=== PATIENT | male | born 1980 | race Caucasian/White ===

== ENCOUNTER 2017-12-20 13:46 | Emergency (ER) | payer BC, SELFPAY ==
--- NOTE | 2017-12-20 15:13 | RAD REPORT ---
EXAM DESCRIPTION: RAD - Elbow Right 3 View - 12/20/2017 2:58 pm CLINICAL HISTORY: Right elbow pain FINDINGS: No fracture or dislocation is seen. Diffuse edema is present within the posterior soft ti ssues.
--- NOTE | 2017-12-20 15:19 | EDPHYS ---
Physician Documentation [facility] Name: Shreyas Quezada Age: 37 yrs Sex: Male : 1980 Arrival Date: 12/20/2017 Time: 13:52 Bed 19 Private MD: None, None ED Physician Juan Braun HPI: 12/20 14:20 The patient or guardian complains of injury, pain. The complaints affect the right gs elbow. Context: resulted from hit elbow on hard surface at work. Onset: The symptoms/episode began/occurred 1 month(s) ago, and became persistent. Treatment prior to arrival includes: went to [facility], no xray done per pt, only iv at er there and oral abx finished 2 weeks ago. Modifying factors: The symptoms are alleviated by nothing. the symptoms are aggravated by nothing. Associated signs and symptoms: Pertinent positives: pain, swelling, Pertinent negatives: fever, numbness. Severity of symptoms: At their worst the symptoms were moderate, in the emergency department the symptoms are unchanged. Historical: - Allergies: 14:04 No Known Allergies; hj - Home Meds: 14:04 None [Active]; hj - PMHx: 14:04 None; hj - PSHx: 14:04 None; hj - Immunization history:: Adult Immunizations up to date. - Social history:: Smoking status: Patient uses tobacco products, smokes one-half pack cigarettes per day, Patient uses alcohol, occasionally. - Ebola Screening: : Patient negative for fever greater than or equal to 101.5 degrees Fahrenheit, and additional compatible Ebola Virus Disease symptoms Patient denies exposure to infectious person Patient denies travel to an Ebola-affected area in the 21 days before illness onset. ROS: 14:20 All other systems are negative. gs Exam: 15:14 Head/Face: Normocephalic, atraumatic. Eyes: Pupils equal round and reactive to light, gs extra-ocular motions intact. Lids and lashes normal. Conjunctiva and sclera are non-icteric and not injected. Cornea within normal limits. Periorbital areas with no swelling, redness, or edema. Cardiovascular: Regular rate and rhythm with a normal S1 and S2. No gallops, murmurs, or rubs. Normal PMI, no JVD. No pulse deficits. Respiratory: Lungs have equal breath sounds bilaterally, clear to auscultation and percussion. No rales, rhonchi or wheezes noted. No increased work of breathing, no retractions or nasal flaring. Abdomen/GI: Soft, non-tender, with normal bowel sounds. No distension or tympany. No guarding or rebound. No evidence of tenderness throughout. Back: No spinal tenderness. No costovertebral tenderness. Full range of motion. Skin: Warm, dry with normal turgor. Normal color with no rashes, no lesions, and no evidence of cellulitis. Neuro: Awake and alert, GCS 15, oriented to person, place, time, and situation. Cranial nerves II-XII grossly intact. Motor strength 5/5 in all extremities. Sensory grossly intact. Cerebellar exam normal. Normal gait. 15:14 Constitutional: The patient appears alert, awake. 15:14 Musculoskeletal/extremity: ROM: full active range of motion, Pulses: are normal with no appreciated deficits, Joints: the right elbow displays effusion, swelling, tenderness. Vital Signs: 14:05 BP 142 / 87; Pulse 98; Resp 18; Temp 98.5(O); Pulse Ox 99% on R/A; Weight 81.65 kg; Height 6 ft. 1 in. (185.42 cm); Pain 6/10; 16:07 BP 130 / 84; Pulse 95; Resp 16; Pulse Ox 99% ; jl7 14:05 Body Mass Index 23.75 (81.65 kg, 185.42 cm) Procedures: 15:55 Joint Treatment: Aspiration of right elbow using 18 gauge needle, Removed unable to gs aspirate fluid, went laterally radial head and olecranon. MDM: 14:16 Patient medically screened. gs 15:14 Differential diagnosis: closed fracture, contusion, tendonitis, bursitis. Data gs reviewed: vital signs, nurses notes. 15:19 ED course: pt states been going on a month, been on abx still having swelling, no gs fevers no cellulitis, do not feel warrants emergent arthrocentesis as not acute, appear pt with chronic bursitis will refer to ortho.. 12/20 14:16 Order name: Elbow Right 3 View XRAY; Complete Time: 15:21 gs Administered Medications: 15:45 Drug: Lidocaine-Epinephrine -1%: (1:100,000) 20 ml {Note: Administered by Dr. Braun to jl7 right elbow.} Volume: 20 ml; Route: Infiltration; 15:52 Drug: [place] 10 mg-325 mg 1 tabs Route: PO; [facility] 16:08 Follow up: Response: Medication administered at discharge. [facility] Disposition: 12/20/17 15:48 Discharged to Home. Impression: Other bursitis of elbow. - Condition is Stable. - Discharge Instructions: Olecranon Bursitis. - Prescriptions for Ceftin 500 mg Oral Tablet - take 1 tablet by ORAL route every 12 hours for 7 days; 14 tablet. Tylenol- Codeine #4 300-60 mg Oral Tablet - take 1 tablet by ORAL route every 6 hours As needed; 12 tablet. - Medication Reconciliation Form, Thank You Letter, Antibiotic Education, Prescription Opioid Use form. - Follow up: Jesse Ho MD; When: 2 - 3 days; Reason: Re-evaluation by your physician. Signatures: Dispatcher [employer] EDMS Wilberto Quintana RN RN Kristina Velásquez RN RN jl7 Juan Braun MD MD Corrections: (The following items were deleted from the chart) 15:29 15:18 12/20/2017 15:18 Discharged to Home. Impression: Other bursitis of elbow, right gs elbow. Condition is Stable. Forms are Work release form, Medication Reconciliation Form, Thank You Letter, Antibiotic Education, Prescription Opioid Use. Follow up: Nathaniel Galaviz; When: 2 - 3 days; Reason: Re-evaluation by your physician. 16:03 15:33 FLUID CELL COUNT,BODY+H.LAB.BRZ ordered. EDMT EDMS 16:05 15:33 FLUID CRYSTALS+U.LAB.BRZ ordered. EDMS EDMS 16:05 15:33 Body Fluid Culture+BA.LAB.BRZ ordered. EDMT EDMS 16:08 15:48 12/20/2017 15:48 Discharged to Home. Impression: Other bursitis of elbow. 7 Condition is Stable. Prescriptions for Naprosyn 500 mg Oral Tablet - take 1 tablet by ORAL route 2 times per day take with food; 20 tablet. and Forms are Medication Reconciliation Form, Thank You Letter, Antibiotic Education, Prescription Opioid Use. Follow up: Jesse Ho; When: 2 - 3 days; Reason: Re-evaluation by your physician.
--- NOTE | 2017-12-20 15:19 | ER ---
Nurse's Notes [facility] Name: Shreyas Quezada Age: 37 yrs Sex: Male : 1980 Arrival Date: 12/20/2017 Time: 13:52 Bed 19 Private MD: None, None Diagnosis: Other bursitis of elbow Presentation: 12/20 14:02 Presenting complaint: Patient states: 4 weeks ago, i was underneath the bumper on my hj truck, i hit it; my R elbow; went to [facility] was dx with bursitis, no xray done; reports swelling; reports numbness and tingling;. Transition of care: patient was not received from another setting of care. Onset of symptoms was December 20, 2017. Risk Assessment: Do you want to hurt yourself or someone else? Patient reports no desire to harm self or others. Initial Sepsis Screen: Does the patient meet any 2 criteria? No. Patient's initial sepsis screen is negative. Does the patient have a suspected source of infection? No. Patient's initial sepsis screen is negative. Care prior to arrival: None. 14:02 Method Of Arrival: Ambulatory 14:02 Acuity: FADUMO 4 hj Triage Assessment: 14:04 General: Appears in no apparent distress. uncomfortable, Behavior is calm, cooperative, hj appropriate for age. Pain: Complains of pain in right elbow Pain currently is 6 out of 10 on a pain scale. Musculoskeletal: Reports pain in right elbow. 14:06 Injury Description: Avulsion bump. hj Historical: - Allergies: 14:04 No Known Allergies; hj - Home Meds: 14:04 None [Active]; hj - PMHx: 14:04 None; hj - PSHx: 14:04 None; hj - Immunization history:: Adult Immunizations up to date. - Social history:: Smoking status: Patient uses tobacco products, smokes one-half pack cigarettes per day, Patient uses alcohol, occasionally. - Ebola Screening: : Patient negative for fever greater than or equal to 101.5 degrees Fahrenheit, and additional compatible Ebola Virus Disease symptoms Patient denies exposure to infectious person Patient denies travel to an Ebola-affected area in the 21 days before illness onset. Screenin:05 Abuse screen: Denies threats or abuse. Denies injuries from another. Nutritional hj screening: No deficits noted. Tuberculosis screening: No symptoms or risk factors identified. Fall Risk None identified. Assessment: 14:08 General: Appears in no apparent distress. well groomed, Behavior is calm, cooperative, tw2 appropriate for age. Pain: Complains of pain in right elbow. Neuro: Level of Consciousness is awake, alert, obeys commands, Oriented to person, place, time, situation. Cardiovascular: Denies chest pain, shortness of breath, Capillary refill < 3 seconds Patient's skin is warm and dry. Respiratory: Airway is patent Respiratory effort is even, unlabored, Respiratory pattern is regular, symmetrical. GI: No signs and/or symptoms were reported involving the gastrointestinal system. : No signs and/or symptoms were reported regarding the genitourinary system. EENT: No signs and/or symptoms were reported regarding the EENT system. Derm: No signs and/or symptoms reported regarding the dermatologic system. Musculoskeletal: Reports numbness in right arm pain in right elbow. 15:00 Reassessment: No changes from previously documented assessment. Patient and/or family jl7 updated on plan of care and expected duration. Pain level reassessed. Patient is alert, oriented x 3, equal unlabored respirations, skin warm/dry/pink. 15:45 Reassessment: Dr. Braun at bedside to drain fluid from right elbow. jl7 Vital Signs: 14:05 BP 142 / 87; Pulse 98; Resp 18; Temp 98.5(O); Pulse Ox 99% on R/A; Weight 81.65 kg; hj Height 6 ft. 1 in. (185.42 cm); Pain 6/10; 16:07 BP 130 / 84; Pulse 95; Resp 16; Pulse Ox 99% ; jl7 14:05 Body Mass Index 23.75 (81.65 kg, 185.42 cm) ED Course: 13:52 Patient arrived in ED. mr 13:52 None, None is Private Physician. mr 14:04 Triage completed. 14:05 Arm band placed on left wrist. 14:05 Patient has correct armband on for positive identification. Bed in low position. Call light in reach. Side rails up X 1. 14:08 Angelica David RN is Primary Nurse. tw2 14:09 Juan Braun MD is Attending Physician. gs 14:56 X-ray completed. Portable x-ray completed in exam room. Patient tolerated procedure ml well. 14:58 Elbow Right 3 View XRAY In Process Unspecified. EDMS 15:07 Primary Nurse role handed off by Angelica David RN tw2 15:15 Kristina Velásquez, ESPERANZA is Primary Nurse. jl 15:16 Nathaniel Galaviz MD is Referral Physician. 15:48 Jesse Ho MD is Referral Physician. 16:07 No provider procedures requiring assistance completed. Patient did not have IV access jl7 during this emergency room visit. Administered Medications: 15:45 Drug: Lidocaine-Epinephrine -1%: (1:100,000) 20 ml {Note: Administered by Dr. Braun to jl7 right elbow.} Volume: 20 ml; Route: Infiltration; 15:52 Drug: [place] 10 mg-325 mg 1 tabs Route: PO; jl7 16:08 Follow up: Response: Medication administered at discharge. jl Outcome: 15:18 Discharge ordered by . gs 15:48 Discharge ordered by . 16:07 Discharged to home ambulatory. jl7 16:07 Condition: stable 16:07 Discharge instructions given to patient, family, Instructed on discharge instructions, follow up and referral plans. medication usage, Demonstrated understanding of instructions, follow-up care, medications, Prescriptions given X 2. 16:08 Patient left the ED. jl7 Signatures: Dispatcher [employer] EDHI Nayla Hutson mr TinsleySabiha Henry, RN RN hj Angelica David RN RN tw2 Kristina Velásquez RN RN jl7 Juan Braun MD MD Corrections: (The following items were deleted from the chart) 14:07 14:05 Pulse 98bpm; Resp 18bpm; Pulse Ox 99% RA; Temp 98.5F Oral; 81.65 kg; Height 6 ft. hj 1 in.; BMI: 23.7; Pain 6/10; hj
[2017-12-20] MEDS ORDERED: LIDOCAINE 1% W/EPI 1:100,000 MDV 50 ML VIAL ONE (15:32)
[2017-12-20] MEDS ORDERED: HYDROCODONE/APAP 10/325 TAB ONE (15:52)
== END 2017-12-20 16:08 | disposition home or self-care (01) ==
LOC: ER 13:46
PROC: 0RJL3ZZ Inspection of Right Elbow Joint, Percutaneous Approach (ICD-10-PCS; principal; 2017-12-20)
DX: M71.521 Other bursitis, not elsewhere classified, right elbow (principal); F17.210 Nicotine dependence, cigarettes, uncomplicated; W22.09XA Striking against other stationary object, initial encounter; Y93.89 Activity, other specified; Y92.89 Other specified places as the place of occurrence of the external cause
CPT/HCPCS: 99283

== ENCOUNTER 2021-12-17 17:31 | Emergency (ER) | payer SELFPAY ==
[2021-12-17 18:34] LABS: Absolute Lymphocytes (CBC) 1.7 K/uL (0.7-4.9); Lymphocytes % 10.4 % (15.3-44.8); MCV 82.2 fL (80-100); MPV 7.7 fL (7.6-11.3)
[2021-12-17] MEDS ORDERED: ONDANSETRON 4 MG/2 ML VIAL ONE ×2 (18:37→19:27)
[2021-12-17] MEDS ORDERED: MORPHINE 4 MG/ML SYR ONE ×2 (18:37→19:27)
[2021-12-17 18:44] LABS: Albumin 3.8 g/dL (3.4-5.0); Bilirubin Total 0.5 mg/dL (0.2-1.0); Potassium 3.8 mmol/L (3.5-5.1); Protein, Total 7.8 g/dL (6.4-8.2)
[2021-12-17] MEDS ORDERED: NA CHLORIDE 0.9% 1,000 ML ONE (19:27)
--- NOTE | 2021-12-17 19:59 | RAD REPORT ---
EXAM DESCRIPTION: CT - Abdomen Pelvis W Contrast - 12/17/2021 7:34 pm CLINICAL HISTORY: Abdominal pain/right rib pain COMPARISON: none. TECHNIQUE: Computed axial tomography of the abdomen pelvis was obtained. 100 cc Isovue-300 was admin istered intravenously. Oral contrast was not requested which limits evaluation of bowel and appendix All CT scans are performed using dose optimization technique as appropriate and may include automated exposure control or mA/KV adjustment according to patient size. FINDINGS: Tiny bilateral renal calculi. Mild left hydronephrosis. Left ureter is dilated. A 2 millim eter calculus left distal ureter. The liver, spleen, pancreas, and adrenals appear unremarkable. There is no evidence of diverticulitis. Small to moderate right inguinal hernia containing fat IMPRESSION: 2 millimeter calculus distal left ureter resulting in mild left hydronephrosis Tiny bilateral renal calculi Small to moderate right inguinal hernia containing fat.
[2021-12-17] MEDS ORDERED: MAGNESIUM SULFATE 1 gm IVPB 1 GM/100 ML BAG IV ONE (20:18)
[2021-12-17] MEDS ORDERED: KETOROLAC 30 MG/ML INJ ONE (20:18)
[2021-12-17] MEDS ORDERED: TAMSULOSIN 0.4 MG SR CAP ONE (20:18)
[2021-12-17 22:45] LABS: Urine Blood 3+ (Negative); Urine Glucose Negative (Negative); Urine Protein 1+ (Negative)
--- NOTE | 2021-12-17 23:28 | EDPHYS ---
Physician Documentation [facility] Name: Shreyas Quezada Age: 41 yrs Sex: Male : 1980 Arrival Date: 12/17/2021 Time: 17:33 Bed 5 Private MD: ED Physician Kirby Gonzalez HPI: 12/18 00:00 This 41 yrs old Male presents to ER via Ambulatory with complaints of abdominal pain. kb 00:00 The patient presents with abdominal pain in the lower abdomen. Onset: The kb symptoms/episode began/occurred last night. The symptoms radiate to. Associated signs and symptoms: Pertinent positives: nausea and vomiting, Pertinent negatives: diarrhea, fever. The symptoms are described as constant. Modifying factors: The symptoms are alleviated by nothing, the symptoms are aggravated by nothing. Severity of pain: At its worst the pain was moderate in the emergency department the pain has improved. The patient has not experienced similar symptoms in the past. Pt states he started having abd pain, nausea and vomiting last night. States he has had a hernia for months and thinks that is the problem because he has not been using the strap to keep it in for 2 days. Hernia reduced at time of exam. . Historical: - Allergies: 12/17 17:46 No Known Allergies; ld1 - Home Meds: 17:46 None [Active]; ld1 - PMHx: 17:46 None; ld1 - PSHx: 17:46 None; ld1 - Immunization history:: Adult Immunizations up to date, Client reports having NOT received the Covid vaccine. - Social history:: Smoking status: Patient reports the use of cigarette tobacco products, smokes one-half pack cigarettes per day, Patient/guardian denies using alcohol. ROS: 12/18 00:00 Constitutional: Negative for fever, chills, and weight loss. kb Abdomen/GI: Positive for abdominal pain, nausea and vomiting, Negative for diarrhea, constipation. All other systems are negative. Exam: 12/17 23:59 Constitutional: This is a well developed, well nourished patient who is awake, alert, kb and in no acute distress. Head/Face: Normocephalic, atraumatic. ENT: Moist Mucous membranes Cardiovascular: Regular rate and rhythm with a normal S1 and S2. No gallops, murmurs, or rubs. No pulse deficits. Respiratory: Respirations even and unlabored. No increased work of breathing. Talking in full sentences Skin: Warm, dry with normal turgor. Normal color. MS/ Extremity: Pulses equal, no cyanosis. Neurovascular intact. Full, normal range of motion. Neuro: Awake and alert, GCS 15, oriented to person, place, time, and situation. Moves all extremities. Normal gait. Psych: Awake, alert, with orientation to person, place and time. Behavior, mood, and affect are within normal limits. Abdomen/GI: Inspection: abdomen appears normal, Bowel sounds: normal, in all quadrants, Palpation: soft, in all quadrants, mild abdominal tenderness, in all quadrants. Vital Signs: 17:43 BP 126 / 92; Pulse 56; Resp 18; Temp 97.8(TE); Pulse Ox 100% on R/A; Weight 81.65 kg; ld1 Height 6 ft. 1 in. (185.42 cm); Pain 8/10; 18:51 BP 131 / 89; Pulse 88; Resp 18; Pulse Ox 100% on R/A; ld1 21:09 BP 131 / 92; Pulse 78; Resp 19 S; Pulse Ox 100% on R/A; as6 12/18 00:08 BP 128 / 72; Pulse 81; Resp 18; Pulse Ox 100% on R/A; kd3 12/17 17:43 Body Mass Index 23.75 (81.65 kg, 185.42 cm) ld1 MDM: 12/17 17:35 Patient medically screened. damaso 23:59 Data reviewed: vital signs, nurses notes. Data interpreted: Pulse oximetry: on room air kb is 100 %. Interpretation: normal. Counseling: I had a detailed discussion with the patient and/or guardian regarding: the historical points, exam findings, and any diagnostic results supporting the discharge/admit diagnosis, lab results, radiology results, the need for outpatient follow up, a urologist, to return to the emergency department if symptoms worsen or persist or if there are any questions or concerns that arise at home. 12/17 17:36 Order name: CBC with Diff; Complete Time: 18:38 kb 12/17 17:36 Order name: CMP; Complete Time: 18:59 kb 12/17 17:36 Order name: Lipase; Complete Time: 18:59 kb 12/17 17:36 Order name: CT Abd/Pelvis - IV Contrast Only; Complete Time: 20:01 kb 12/17 20:02 Order name: Urine Microscopic Only kb 12/17 22:45 Order name: Urine Dipstick-Ancillary; Complete Time: 23:03 EDMS 12/17 17:36 Order name: IV Saline Lock; Complete Time: 17:49 kb 12/17 17:36 Order name: Labs collected and sent; Complete Time: 18:22 kb 12/17 20:02 Order name: Urine Dipstick-Ancillary (obtain specimen); Complete Time: 22:39 kb Administered Medications: 19:26 Drug: morphine 4 mg Route: IVP; Infused Over: 4 mins; Site: left hand; kd3 23:54 Follow up: Response: No adverse reaction 12/18 00:08 Follow up: Response: No adverse reaction 12/17 19:26 Drug: Zofran (Ondansetron) 4 mg Route: IVP; Site: left hand; kd3 23:54 Follow up: Response: No adverse reaction 12/18 00:09 Follow up: Response: No adverse reaction 12/17 19:26 Drug: NS 0.9% 1000 ml Route: IV; Rate: 1000 ml; Site: left hand; kd3 23:54 Follow up: Response: No adverse reaction; IV Status: Completed infusion 12/18 00:09 Follow up: Response: No adverse reaction; IV Status: Completed infusion 12/17 20:18 Drug: Magnesium Sulfate 1 grams Route: IVPB; Infused Over: 1 hrs; Site: left hand; kd3 23:54 Follow up: Response: No adverse reaction; IV Status: Completed infusion 12/18 00:09 Follow up: Response: No adverse reaction 12/17 20:18 Drug: Flomax (tamsulosin) 0.4 mg Route: PO; 12/18 00:09 Follow up: Response: No adverse reaction 12/17 20:18 Drug: Ketorolac 15 mg Route: IVP; Site: left hand; kd3 23:53 Follow up: Response: No adverse reaction 12/18 00:09 Follow up: Response: No adverse reaction 12/17 23:53 Drug: [place] (HYDROcodone-acetaminophen) (7.5 mg-325 mg) 1 tabs Route: PO; kd3 23:53 Follow up: Response: No adverse reaction kd3 23:53 Drug: Rocephin (cefTRIAXone) 1 grams Route: IV; Rate: calculated rate; Site: left hand; kd3 23:53 Follow up: Response: No adverse reaction; IV Status: Completed infusion kd3 Disposition Summary: 12/17/21 23:28 Discharge Ordered Location: Home kb Condition: Stable kb Diagnosis - Calculus of kidney with calculus of ureter kb Followup: kb - With: Emergency Department - When: As needed - Reason: Worsening of condition Followup: kb - With: Private Physician - When: 2 - 3 days - Reason: Recheck today's complaints, Continuance of care, Re-evaluation by your physician Discharge Instructions: - Discharge Summary Sheet kb - Kidney Stones, [id number] kb Forms: - Medication Reconciliation Form kb - Thank You Letter kb - Antibiotic Education kb - Prescription Opioid Use kb Prescriptions: - Flomax 0.4 mg Oral capsule - take 1 capsule by ORAL route once daily 1/2 hour following the same meal each kb day; 10 capsule; Refills: 0, Product Selection Permitted - Zofran 4 mg Oral Tablet - take 1 tablet by ORAL route every 6 hours As needed; 20 tablet; Refills: 0, Product Selection Permitted - Cipro 500 mg Oral Tablet - take 1 tablet by ORAL route every 12 hours for 7 days; 14 tablet; Refills: 0, Product Selection Permitted - Diclofenac Sodium 75 mg Oral tablet,delayed release (DR/EC) - take 1 tablet by ORAL route 2 times per day As needed; 30 tablet; Refills: 0, kb Product Selection Permitted Signatures: Dispatcher [employer] Sharifa Zheng FNP-C FNP-Kirby Ruiz MD MD cha Dibbern, Lauren RN RN ld1 Ana Arriaga RN RN kd3 Corrections: (The following items were deleted from the chart) 17:46 17:46 PMHx: Unable to Obtain; ld1 ld1
--- NOTE | 2021-12-17 23:28 | ER ---
Nurse's Notes [facility] Name: Shreyas Quezada Age: 41 yrs Sex: Male : 1980 Arrival Date: 12/17/2021 Time: 17:33 Bed 5 Private MD: Diagnosis: Calculus of kidney with calculus of ureter Presentation: 12/17 17:43 Chief complaint: Patient states: Right groin pain since last night- radiates to ld1 testicles and abdomen. C/O n/v. Coronavirus screen: At this time, the client does not indicate any symptoms associated with coronavirus-19. Ebola Screen: No symptoms or risks identified at this time. Initial Sepsis Screen: Does the patient meet any 2 criteria? No. Patient's initial sepsis screen is negative. Does the patient have a suspected source of infection? No. Patient's initial sepsis screen is negative. Risk Assessment: Do you want to hurt yourself or someone else? Patient reports no desire to harm self or others. Onset of symptoms was December 17, 2021. 17:43 Method Of Arrival: Ambulatory ld1 17:43 Acuity: FADUMO 3 ld1 17:46 Care prior to arrival: Medication(s) given: zofran 4 mg. ld1 Triage Assessment: 17:46 General: Appears in no apparent distress. comfortable, Behavior is calm, cooperative, ld1 appropriate for age. Pain: Complains of pain in right femoral area and right inguinal area Pain radiates to abdomen, left testicle and right testicle Pain currently is 8 out of 10 on a pain scale. Quality of pain is described as throbbing, Pain began suddenly. EENT: No signs and/or symptoms were reported regarding the EENT system. Neuro: Level of Consciousness is awake, alert, obeys commands, Oriented to person, place, time, situation. Cardiovascular: Capillary refill < 3 seconds Patient's skin is warm and dry. Rhythm is sinus rhythm. Respiratory: Airway is patent Respiratory effort is even, unlabored, Respiratory pattern is regular, symmetrical. GI: Abdomen is flat, non-distended. GI: Reports lower abdominal pain, upper abdominal pain, nausea, vomiting. : No signs and/or symptoms were reported regarding the genitourinary system. Derm: No signs and/or symptoms reported regarding the dermatologic system. Musculoskeletal: No signs and/or symptoms reported regarding the musculoskeletal system. Historical: - Allergies: 17:46 No Known Allergies; ld1 - Home Meds: 17:46 None [Active]; ld1 - PMHx: 17:46 None; ld1 - PSHx: 17:46 None; ld1 - Immunization history:: Adult Immunizations up to date, Client reports having NOT received the Covid vaccine. - Social history:: Smoking status: Patient reports the use of cigarette tobacco products, smokes one-half pack cigarettes per day, Patient/guardian denies using alcohol. Screenin:48 Abuse screen: Denies threats or abuse. Denies injuries from another. Nutritional ld1 screening: No deficits noted. Tuberculosis screening: No symptoms or risk factors identified. Fall Risk None identified. Assessment: 17:48 Reassessment: See triage assessment. ld1 19:27 General: Appears uncomfortable, Behavior is calm, cooperative. Neuro: Level of kd3 Consciousness is awake, alert, obeys commands, Oriented to person, place, time, situation. Respiratory: Airway is patent Trachea midline Respiratory effort is even, unlabored, Respiratory pattern is regular, symmetrical. Vital Signs: 17:43 BP 126 / 92; Pulse 56; Resp 18; Temp 97.8(TE); Pulse Ox 100% on R/A; Weight 81.65 kg; ld1 Height 6 ft. 1 in. (185.42 cm); Pain 8/10; 18:51 BP 131 / 89; Pulse 88; Resp 18; Pulse Ox 100% on R/A; ld1 21:09 BP 131 / 92; Pulse 78; Resp 19 S; Pulse Ox 100% on R/A; as6 12/18 00:08 BP 128 / 72; Pulse 81; Resp 18; Pulse Ox 100% on R/A; kd3 12/17 17:43 Body Mass Index 23.75 (81.65 kg, 185.42 cm) ld1 ED Course: 12/17 17:33 Patient arrived in ED. iw 17:35 Sharifa Tirado FNP-C [facility] kb 17:35 Kirby Gonzalez MD is Attending Physician. kb 17:43 Mary Rivera, ESPERANZA is Primary Nurse. ld1 17:46 Triage completed. ld1 17:46 Arm band placed on. ld1 17:48 Patient has correct armband on for positive identification. Placed in gown. Bed in low ld1 position. Call light in reach. Side rails up X2. international relations teacher on. Pulse ox on. NIBP on. Door closed. Noise minimized. Warm blanket given. 17:48 No provider procedures requiring assistance completed. Maintain EMS IV. Dressing ld1 intact. Good blood return noted. Site clean \T\ dry. Gauge \T\ site: 20G LH. 19:27 Inserted saline lock: 22 gauge in right antecubital area, using aseptic technique. kd3 19:36 CT Abd/Pelvis - IV Contrast Only In Process Unspecified. EDMS 23:54 IV discontinued, intact, bleeding controlled, No redness/swelling at site. Pressure kd3 dressing applied. Administered Medications: 19:26 Drug: morphine 4 mg Route: IVP; Infused Over: 4 mins; Site: left hand; kd3 23:54 Follow up: Response: No adverse reaction kd3 12/18 00:08 Follow up: Response: No adverse reaction kd3 12/17 19:26 Drug: Zofran (Ondansetron) 4 mg Route: IVP; Site: left hand; kd3 23:54 Follow up: Response: No adverse reaction 3 12/18 00:09 Follow up: Response: No adverse reaction 3 12/17 19:26 Drug: NS 0.9% 1000 ml Route: IV; Rate: 1000 ml; Site: left hand; kd3 23:54 Follow up: Response: No adverse reaction; IV Status: Completed infusion 3 12/18 00:09 Follow up: Response: No adverse reaction; IV Status: Completed infusion 3 12/17 20:18 Drug: Magnesium Sulfate 1 grams Route: IVPB; Infused Over: 1 hrs; Site: left hand; kd3 23:54 Follow up: Response: No adverse reaction; IV Status: Completed infusion 3 12/18 00:09 Follow up: Response: No adverse reaction 3 12/17 20:18 Drug: Flomax (tamsulosin) 0.4 mg Route: PO; kd3 12/18 00:09 Follow up: Response: No adverse reaction 3 12/17 20:18 Drug: Ketorolac 15 mg Route: IVP; Site: left hand; kd3 23:53 Follow up: Response: No adverse reaction 3 06/30 00:09 Follow up: Response: No adverse reaction kd3 12/17 23:53 Drug: [place] (HYDROcodone-acetaminophen) (7.5 mg-325 mg) 1 tabs Route: PO; kd3 23:53 Follow up: Response: No adverse reaction kd3 23:53 Drug: Rocephin (cefTRIAXone) 1 grams Route: IV; Rate: calculated rate; Site: left hand; kd3 23:53 Follow up: Response: No adverse reaction; IV Status: Completed infusion kd3 Medication: 17:48 VIS not applicable for this client. ld1 Outcome: 23:28 Discharge ordered by . kb 23:41 Condition: stable kd3 23:42 Discharged to home ambulatory. kd3 23:42 Discharge instructions given to patient. 12/18 00:09 Patient left the ED. kd3 Signatures: Dispatcher [employer] EDMS Sharifa Tirado, PERFORMANCE TEST ARCHITECT-C PERFORMANCE TEST ARCHITECT-CkMonica Jay RN RN iw Mary Rivera RN RN ld1 Juanjo Schultz RN RN as6 Ana Arriaga RN RN kd3 Corrections: (The following items were deleted from the chart) 12/17 17:46 17:46 PMHx: Unable to Obtain; ld1 ld1 21:09 21:07 BP 131 / 92; Pulse 94bpm; Resp 19bpm; Spontaneous; Pulse Ox 100% RA; as6 as6
[2021-12-17] MEDS ORDERED: HYDROCODONE/APAP 7.5/325 MG TAB ONE (23:53)
[2021-12-17] MEDS ORDERED: CEFTRIAXONE 1000 MG/VIAL ONE (23:53)
[2021-12-18 00:14] LABS: Urine Bacteria <20 /HPF (NONE SEEN); Urine RBC 20-50 /HPF (NONE SEEN)
[2021-12-18 01:59] VITALS: TEMP 97.8; O2SAT 100
[2021-12-18 02:03] VITALS: BP 128/72
== END 2021-12-18 00:09 | disposition home or self-care (01) ==
LOC: ER 17:31
DX: N20.2 Calculus of kidney with calculus of ureter (principal); R11.2 Nausea with vomiting, unspecified; F17.210 Nicotine dependence, cigarettes, uncomplicated
CPT/HCPCS: 36415; 74177; 80053; 81003; 81015; 83690; 85025; 96361; 96365; 96366; 96375; 99284; J2405; J3475; J7030; Q9967

== ENCOUNTER 2023-11-17 10:12 | Emergency (ER) | payer OTHER, SELFPAY ==
--- OUTSIDE RECORDS SUMMARY | 2023-11-17 10:15 | XMS REPORT | Continuity of Care Document ---
Author Name Unknown Address [address] [place] [address] [address] [employer] Address [address] [place] [address] [address] [place] [address] Care Team Providers Care Stable Hand Name Role Phone Unavailable Unavailable Unavailable Encounters Start Date/Time End Date/Time Encounter Type Admission Type Attending Clinicians Care Facility Care Department Encounter ID Source 2022-03-24 11:16:48 2022-03-24 11:16:48 Outpatient [facility] [id number] Drake Mcknight
[2023-11-17] MEDS ORDERED: KETOROLAC 30 MG/ML INJ ONE (10:58)
[2023-11-17] MEDS ORDERED: NA CHLORIDE 0.9% 1,000 ML ONE (10:58)
--- NOTE | 2023-11-17 11:00 | RAD REPORT ---
EXAM DESCRIPTION: CT - Abdomen Pelvis Wo Contrast - 11/17/2023 10:47 am CLINICAL HISTORY: Abdominal pain. FLANK PAIN COMPARISON: Abdomen Pelvis W Contrast dated 12/17/2021 TECHNIQUE: CT imaging of the abdomen and pelvis was performed without contrast. Solid organ, bowel a nd vascular assessment is limited due to lack of IV and oral contrast. All CT scans are performed using dose optimization technique as appropriate and may include automated exposure control or mA/KV adjustment according to patient size. FINDINGS: The lower lung obrien are clear. The liver, spleen, pancreas, adrenal glands are within normal limits for a limited non-contrast exami nation.Punctate caliceal stones are present bilaterally. No hydronephrosis. No bowel obstruction, free air, free fluid or abscess. Prominent wall thickening is seen with surroun ding trace fluid and inflammation involving the cecum and ascending colon. No pneumatosis coli. Moder ate fecal retention throughout the colon. The appendix is normal. Large fat containing right inguinal hernia containing numerous small bowel loops without obstruction or incarceration. Moderate multilevel lumbar degenerative changes. IMPRESSION: Right-sided colitis is suspected with fecal retention. This may be due to infection or i nflammatory bowel disease. Followup colonoscopy may be useful. Punctate bilateral nephrolithiasis without hydronephrosis. Large fat containing right inguinal hernia containing small bowel loops without evidence of incarcera tion or obstruction. A limited non-contrast examination was performed as detailed.
[2023-11-17] MEDS ORDERED: CIPROFLOXACIN 400mg IV 400 MG/200 ML BAG IV ONE (11:36)
[2023-11-17 12:02] LABS: Absolute Basophils 0.1 K/uL (0-0.5); Absolute Eosinophils 0.1 K/uL (0-0.5); Absolute Lymphocytes (CBC) 1.5 K/uL (0.7-4.9); Absolute Monocytes 1.1 K/uL (0.1-1.3); Basophils % 0.5 % (0-1.3); Eosinophils % 0.6 % (0-4.4); Hematocrit 40.8 % (39.6-49.0); Hemoglobin 13.7 g/dL (13.6-17.9); MCH 28.9 pg (27.0-35.0); MCHC 33.6 g/dL (32.0-36.0); MPV 7.3 fL (7.6-11.3); Monocytes % 9.3 % (3.3-12.3); Neutrophils % 76.6 % (41.7-73.7); Nucleated Red Blood Cells % 0.1 % (0-0); Platelets 223 thou/uL (152-406); RBC Red Blood Cell Count 4.75 M/uL (4.33-5.43); Red Cell Distribution Width 13.2 % (12.1-15.2)
[2023-11-17 12:16] LABS: ALT/SGPT 15 U/L (16-61); Albumin 2.9 g/dL (3.4-5.0); Albumin/Globulin Ratio 0.8 (1.1-1.8); Alkaline Phosphatase 88 U/L (45-117); Anion Gap 3.8 mEq/L (5.0-15.0); BUN Blood Urea Nitrogen 9 mg/dL (7-18); Bicarbonate 31 mEq/L (21-32); Bilirubin Total 0.3 mg/dL (0.2-1.0); Globulin 3.6 g/dL (2.3-3.5); Glomerular Filtration Rate 103 ml/min (=/>90); Glucose Level 98 mg/dL (74-106); Lipase 27 U/L (13-75); Potassium 3.8 mEq/L (3.5-5.1); Protein, Total 6.5 g/dL (6.4-8.2); Sodium Level 134 mEq/L (136-145)
[2023-11-17 12:19] LABS: AST/SGOT < 10 U/L (15-37)
[2023-11-17 13:34] LABS: Specific Gravity > 1.030 (1.005-1.030); Sqamous Epithelial <5 /HPF (None Seen); Urine Bacteria None Seen /HPF (<20); Urine Bilirubin NEGATIVE (Negative); Urine Blood Negative (Negative); Urine Clarity Turbid (Clear); Urine Color Yellow (Yellow); Urine Culture Reflex Order NOT NEEDED; Urine Glucose NEGATIVE (Negative); Urine Ketones NEGATIVE (Negative); Urine Microscopic Reflex YN ORDER UMIC; Urine Mucus 3+ /HPF (None Seen); Urine Nitrite NEGATIVE (Negative); Urine Protein 1+ (Negative); Urine Urobilinogen Normal (Normal); Urine WBC <5 /HPF (<5)
--- NOTE | 2023-11-17 13:38 | EDPHYS ---
Physician Documentation [facility] Name: Shreyas Quezada Age: 43 yrs Sex: Male : 1980 Arrival Date: 11/17/2023 Time: 10:12 Bed 13 Private MD: ED Physician Don Ayers HPI: 11/16 11:17 This 43 yrs old Male presents to ER via Ambulatory with complaints of Flank Pain, Pain sp3 With Urination, Abdominal Pain. 11:17 43-year-old male with a history of right-sided inguinal hernia and prior kidney stones sp3 presents with right flank pain and cramping for the last 48 hours. He states that he "might of passed a kidney stone yesterday". He denies any gross visualized hematuria, dysuria, urinary frequency, left-sided abdominal pain, chest pain, shortness of breath, fever, known sick contacts, cough, URI symptoms, or any other signs or symptoms on ROS at this time.. Historical: - Allergies: 10:31 No Known Allergies; iw - PMHx: 10:31 Inguinal hernia; iw - Immunization history:: Adult Immunizations unknown. - Infectious Disease History:: Denies. - Social history:: Smoking status: Patient reports the use of cigarette tobacco products, denies chronic smoking, but will smoke occasionally. ROS: 11:18 Constitutional: Negative for fever, chills, and weight loss, Eyes: Negative for injury, sp3 pain, redness, and discharge, ENT: Negative for injury, pain, and discharge, Neck: Negative for injury, pain, and swelling, Cardiovascular: Negative for chest pain, palpitations, and edema, Respiratory: Negative for shortness of breath, cough, wheezing, and pleuritic chest pain, MS/Extremity: Negative for injury and deformity, Skin: Negative for injury, rash, and discoloration, Neuro: Negative for headache, weakness, numbness, tingling, and seizure, Psych: Negative for depression, anxiety, suicide ideation, homicidal ideation, and hallucinations, Allergy/Immunology: Negative for hives, rash, and allergies, Endocrine: Negative for neck swelling, polydipsia, polyuria, polyphagia, and marked weight changes, Hematologic/Lymphatic: Negative for swollen nodes, abnormal bleeding, and unusual bruising, 11:18 All other systems are negative, Exam: 11:18 Constitutional: This is a well developed, well nourished patient who is awake, alert, sp3 and in no acute distress. Head/Face: Normocephalic, atraumatic. ENT: Nares patent. No nasal discharge, no septal abnormalities noted. External auditory canals are clear. Oropharynx with no redness, swelling, or masses, exudates, or evidence of obstruction, uvula midline. Mucous membranes moist. Neck: Trachea midline, no thyromegaly or masses palpated, and no cervical lymphadenopathy. Supple, full range of motion without nuchal rigidity, or vertebral point tenderness. No Meningismus. Chest/axilla: Normal chest wall appearance and motion. Nontender with no deformity. No lesions are appreciated. Cardiovascular: Regular rate and rhythm with a normal S1 and S2. No gallops, murmurs, or rubs. Normal PMI, no JVD. No pulse deficits. Respiratory: Lungs have equal breath sounds bilaterally, clear to auscultation and percussion. No rales, rhonchi or wheezes noted. No increased work of breathing, no retractions or nasal flaring. Back: No spinal tenderness. No costovertebral tenderness. Full range of motion. Skin: Warm, dry with normal turgor. Normal color with no rashes, no lesions, and no evidence of cellulitis. MS/ Extremity: Pulses equal, no cyanosis. Neurovascular intact. Full, normal range of motion. Neuro: Awake and alert, GCS 15, oriented to person, place, time, and situation. Cranial nerves II-XII grossly intact. Motor strength 5/5 in all extremities. Sensory grossly intact. Cerebellar exam normal. Normal gait. Psych: Awake, alert, with orientation to person, place and time. Behavior, mood, and affect are within normal limits. 11:18 Abdomen/GI: Mild right-sided abdominal pain to palpation without peritoneal signs, rebound or guarding. Inguinal hernias present that is reducible. Mild right CVA tenderness noted. Nonsurgical abdomen., Vital Signs: 10:29 BP 121 / 79; Pulse 84; Resp 16; Temp 99.3; Pulse Ox 100% ; Weight 84.37 kg; Height 6 iw ft. 1 in. ; Pain 6/10; 11:32 BP 126 / 88; Pulse 75; Resp 18 S; Pulse Ox 100% on R/A; kc6 12:27 BP 132 / 88; Pulse 76; Resp 16 S; Pulse Ox 100% on R/A; kc6 13:59 BP 122 / 84; Pulse 75; Resp 18 S; Pulse Ox 99% on R/A; kc6 10:29 Body Mass Index 24.54 (84.37 kg, 185.42 cm) iw 10:29 Pain Scale: Adult iw MDM: 10:37 Patient medically screened. sp3 11:18 Data reviewed: vital signs, nurses notes, lab test result(s), radiologic studies. ED sp3 course: 43-year-old male with right-sided abdominal pain and flank pain. Differential diagnosis includes UTI/pyelonephritis spectrum, kidney stone/ureterolithiasis spectrum, colitis, other GI infection, musculoskeletal pain, appendicitis, hernia related pathology, among others. Workup will include CT scan of the abdomen pelvis, laboratory values, urine analysis and general observation and supportive care with any medical intervention as indicated. Probable discharge pending workup.. 13:35 ED course: CT scan demonstrates colitis on the right side with constipation/stool sp3 retention. No kidney stone noted. Inguinal hernia is present without strangulation. Patient has been given 40 mg of Cipro IV here and will be discharged on Cipro and Flagyl p.o. for home use along with OTC stool softener. Patient to follow-up with Dr. Velasco for hernia repair.. 11/16 10:38 Order name: CBC with Diff; Complete Time: 12:57 sp3 11/16 10:38 Order name: CMP; Complete Time: 12:57 sp3 11/16 10:38 Order name: Lipase; Complete Time: 12:57 sp3 11/16 10:38 Order name: Urinalysis w/ reflexes; Complete Time: 13:34 sp3 11/16 10:38 Order name: CT Abd/Pelvis - Without Contrast; Complete Time: 11:16 sp3 11/16 10:38 Order name: IV Saline Lock; Complete Time: 11:45 sp3 11/16 10:38 Order name: Labs collected and sent; Complete Time: 12:26 sp3 Administered Medications: 11:46 Drug: NS 0.9% IV 1000 ml IV at 1 bolus Per protocol; 1000 mL bolus Route: IV; Rate: 1 kc6 bolus; Site: right hand; 13:58 Follow up: Response: No adverse reaction; IV Status: Completed infusion; IV Intake: kc6 1000ml 11:46 Drug: TORadol - Ketorolac IVP 15 mg IVP once Route: IVP; Site: right hand; kc6 12:26 Follow up: Response: No adverse reaction; Pain is decreased [facility] 11:46 Drug: Ciprofloxacin IVPB 400 mg 200 ml IVPB once over 60 mins Volume: 200 ml; Route: kc6 IVPB; Infused Over: 60 mins; Site: right hand; 13:58 Follow up: Response: No adverse reaction; IV Status: Completed infusion; IV Intake: kc6 200ml Disposition Summary: 11/17/23 13:37 Discharge Ordered Notes: Location: Home sp3 Condition: Stable sp3 Diagnosis - Colitis, constipation, right inguinal hernia without strangulation sp3 Followup: sp3 - With: Garret Velasco MD - When: Upon discharge from the Emergency Department - Reason: Further diagnostic work-up Discharge Instructions: - Discharge Summary Sheet sp3 - Inguinal Hernia, Adult sp3 - Colitis sp3 Forms: - Work release form iw - Medication Reconciliation Form sp3 - Antibiotic Education sp3 - Prescription Opioid Use sp3 - Patient Portal Instructions sp3 - Leadership Thank You Letter sp3 Prescriptions: - Cipro 500 mg Oral Tablet - take 1 tablet ORAL route every 12 hours for 10 days; 20 tablet; Refills: 0, sp3 Product Selection Permitted - Flagyl 500 mg Oral Tablet - take 1 tablet ORAL route every 8 hours for 10 days; 30 tablet; Refills: 0, sp3 Product Selection Permitted Signatures: Dispatcher [employer] Monica Jose RN RN iw Don Ayers MD MD sp3 Rosanne Orlando RN RN kc6 Corrections: (The following items were deleted from the chart) 10:31 10:31 PMHx: None; iw iw 10:38 10:38 Abdomen Pelvis Wo Con+CT.RAD.BRZ ordered. KEKE DAVIES
--- NOTE | 2023-11-17 13:38 | ER ---
Nurse's Notes [facility] Name: Shreyas Quezada Age: 43 yrs Sex: Male : 1980 Arrival Date: 11/17/2023 Time: 10:12 Bed 13 Private MD: Diagnosis: Colitis, constipation, right inguinal hernia without strangulation Presentation: 11/16 10:29 Chief complaint: Patient states: RIGHT FLANK PAIN X 2 DAYS FEELS LIKE KIDNEY STONES iw STATES COMES AND GOES WITH CRAMPING. STATES NOW PAIN HAS NOT LEFT. STATES ALSO HAS RIGHT INGUINAL HERNIA THAT IS CAUSING PAIN. STATES YESTERDAY FELT LIKE HAD A FEVER AND TOOK IBUPROFEN. Coronavirus screen: Client denies travel out of the [place] in the last 14 days. At this time, the client does not indicate any symptoms associated with coronavirus-19. Ebola Screen: Patient negative for fever greater than or equal to 101.5 degrees Fahrenheit, and additional compatible Ebola Virus Disease symptoms Patient denies exposure to infectious person. Patient denies travel to an Ebola-affected area in the 21 days before illness onset. No symptoms or risks identified at this time. Initial Sepsis Screen: Does the patient meet any 2 criteria? No. Patient's initial sepsis screen is negative. Does the patient have a suspected source of infection? No. Patient's initial sepsis screen is negative. Risk Assessment: Do you want to hurt yourself or someone else? Patient reports no desire to harm self or others. Onset of symptoms was November 16, 2023. 10:29 Method Of Arrival: Ambulatory iw 10:29 Acuity: FADUMO 3 iw Triage Assessment: 10:31 General: Appears in no apparent distress. comfortable, Behavior is calm, cooperative. iw Pain: Complains of pain in back and abdomen. Neuro: Level of Consciousness is awake, alert, obeys commands, Oriented to person, place, time, situation. Respiratory: Airway is patent Respiratory effort is even, unlabored, Respiratory pattern is regular, symmetrical. GI: Abdomen is flat, non-distended, Reports lower abdominal pain, upper abdominal pain, cramping, nausea, vomiting. : Reports burning with urination. Historical: - Allergies: 10:31 No Known Allergies; iw - PMHx: 10:31 Inguinal hernia; iw - Immunization history:: Adult Immunizations unknown. - Infectious Disease History:: Denies. - Social history:: Smoking status: Patient reports the use of cigarette tobacco products, denies chronic smoking, but will smoke occasionally. Screenin:30 [facility] ED Fall Risk Assessment (Adult) History of falling in the last 3 months, kc6 including since admission No falls in past 3 months (0 pts) Confusion or Disorientation No (0 pts) Intoxicated or Sedated No (0 pts) Impaired Gait No (0 pts) Mobility Assist Device Used No (0 pt) Altered Elimination No (0 pt) Score/Fall Risk Level 0 - 2 = Low Risk. Abuse screen: Denies threats or abuse. Denies injuries from another. Nutritional screening: No deficits noted. Tuberculosis screening: No symptoms or risk factors identified. Assessment: 11:31 General: Appears in no apparent distress. comfortable, Behavior is calm, cooperative, kc6 appropriate for age. Pain: Complains of pain in abdomen and back. Neuro: Level of Consciousness is awake, alert, obeys commands, Oriented to person, place, time, situation, Appropriate for age. Cardiovascular: Capillary refill < 3 seconds. Respiratory: Airway is patent Trachea midline Respiratory effort is even, unlabored, Respiratory pattern is regular, symmetrical. GI: No signs and/or symptoms were reported involving the gastrointestinal system. : Reports burning with urination, pain in right flank(s), lower quadrant(s). EENT: No signs and/or symptoms were reported regarding the EENT system. Derm: No signs and/or symptoms reported regarding the dermatologic system. Skin is intact, is healthy with good turgor, Skin is pink, warm \T\ dry. Musculoskeletal: No signs and/or symptoms reported regarding the musculoskeletal system. Circulation, motion, and sensation intact. Capillary refill < 3 seconds, Range of motion: intact in all extremities. 11:46 Reassessment: PHLEBOTOMY ON THEIR WAY TO COME OBTAIN LABS. kc6 12:26 Reassessment: Patient appears in no apparent distress at this time. No changes from kc6 previously documented assessment. Patient and/or family updated on plan of care and expected duration. Pain level reassessed. Patient is alert, oriented x 3, equal unlabored respirations, skin warm/dry/pink. Patient states feeling better. 13:58 Reassessment: Patient appears in no apparent distress at this time. No changes from kc6 previously documented assessment. Patient and/or family updated on plan of care and expected duration. Pain level reassessed. Patient is alert, oriented x 3, equal unlabored respirations, skin warm/dry/pink. Vital Signs: 10:29 BP 121 / 79; Pulse 84; Resp 16; Temp 99.3; Pulse Ox 100% ; Weight 84.37 kg; Height 6 iw ft. 1 in. ; Pain 6/10; 11:32 BP 126 / 88; Pulse 75; Resp 18 S; Pulse Ox 100% on R/A; kc6 12:27 BP 132 / 88; Pulse 76; Resp 16 S; Pulse Ox 100% on R/A; kc6 13:59 BP 122 / 84; Pulse 75; Resp 18 S; Pulse Ox 99% on R/A; kc6 10:29 Body Mass Index 24.54 (84.37 kg, 185.42 cm) iw 10:29 Pain Scale: Adult iw ED Course: 10:16 Patient arrived in ED. mg5 10:29 Monica Stokes, ESPERANZA is Primary Nurse. iw 10:30 Don Ayers MD is Attending Physician. sp3 10:30 Triage completed. iw 10:31 Arm band placed on left wrist. iw 10:49 CT Abd/Pelvis - Without Contrast In Process Unspecified. EDMS 11:12 Missed attempt(s): 22 gauge in right antecubital area. Missed attempt(s): 20 gauge in kc6 left antecubital area. 11:31 Patient has correct armband on for positive identification. Bed in low position. Call kc6 light in reach. Side rails up X 1. Client placed on continuous cardiac and pulse oximetry monitoring. NIBP monitoring applied. 11:45 Inserted saline lock: 22 gauge in right hand, using aseptic technique. iw 13:37 Garret Velasco MD is Referral Physician. sp3 14:28 Provided Education on: . iw 14:28 No provider procedures requiring assistance completed. IV discontinued, intact, iw bleeding controlled, No redness/swelling at site. Pressure dressing applied. Administered Medications: 11:46 Drug: NS 0.9% IV 1000 ml IV at 1 bolus Per protocol; 1000 mL bolus Route: IV; Rate: 1 kc6 bolus; Site: right hand; 13:58 Follow up: Response: No adverse reaction; IV Status: Completed infusion; IV Intake: kc6 1000ml 11:46 Drug: TORadol - Ketorolac IVP 15 mg IVP once Route: IVP; Site: right hand; kc6 12:26 Follow up: Response: No adverse reaction; Pain is decreased kc6 11:46 Drug: Ciprofloxacin IVPB 400 mg 200 ml IVPB once over 60 mins Volume: 200 ml; Route: kc6 IVPB; Infused Over: 60 mins; Site: right hand; 13:58 Follow up: Response: No adverse reaction; IV Status: Completed infusion; IV Intake: kc6 200ml Medication: 14:28 VIS not applicable for this client. iw Intake: 13:58 IV: 1000ml; Total: 1000ml. kc6 13:58 IV: 200ml; Total: 1200ml. kc6 Outcome: 13:37 Discharge ordered by . krunal 14:28 Discharged to home ambulatory, iw 14:28 Condition: good 14:28 Discharge instructions given to patient, Instructed on discharge instructions, follow up and referral plans. Demonstrated understanding of instructions, follow-up care, medications, Prescriptions given X 2, 14:28 Patient left the ED. iw Signatures: Dispatcher [employer] EDMonica Owens, RN RN Don Colmenares MD MD sp3 Rosanne Orlando RN RN kc6 Cassandra Riley mg5 Corrections: (The following items were deleted from the chart) 10:31 10:29 Chief complaint: Patient states: RIGHT FLANK PAIN X 2 DAYS FEELS LIKE KIDNEY iw STONES STATES COMES AND GOES WITH CRAMPING. STATES NOW PAIN HAS NOT LEFT. STATES ALSO HAS RIGHT INGUINAL HERNIA THAT IS CAUSING PAIN. iw 10:31 10:31 PMHx: None; iw iw
[2023-11-17 14:36] VITALS: TEMP 99.3
[2023-11-17 14:58] VITALS: BP 122/84; O2SAT 99
== END 2023-11-17 14:28 | disposition home or self-care (01) ==
LOC: ER 10:12
DX: K52.9 Noninfective gastroenteritis and colitis, unspecified (principal); K59.00 Constipation, unspecified; K40.90 Unilateral inguinal hernia, without obstruction or gangrene, not specified as recurrent; F17.210 Nicotine dependence, cigarettes, uncomplicated
CPT/HCPCS: 96365; 85025; 81001; 36415; 83690; 80053; 74176; 96375; 99284; 96366; J0744; J7030

== ENCOUNTER 2025-02-18 22:38 | Inpatient (IN) | payer OTHER ==
--- OUTSIDE RECORDS SUMMARY | 2025-02-18 22:43 | XMS REPORT | Continuity of Care Document ---
Author Name Unknown Address [address] [facility] [address] [place] [address] [facility] Address [address] [facility] [address] [place] [address] Care Team Providers Care Family Nurse Name Role Phone Doris Kimble Attending Clinician Unav ailable Cece Cortes Attending Clinician Unavailable Harshad Collier Attending Clinician Unavailab Jun Blanton Attending Clinician Unavailabl e KNOW, DOES_NOT Admitting Clinician Unavailable Cece Cortes Admitting Clinician Unavailable Physician, No Primary or Family Admitting Clinic jeanine Unavailable Jun Nelson Admitting Clinician Unavailabl e Payers Payer Name Policy Type Policy Number Effective Date Expirati on Date Source Allergies, Adverse Reactions, Alerts Allergy Name Allergy Type Status Severity Reaction(s) Onset Date Inactive Date Treating Clinician Comments Source No Known Allergie s DA Active U 11-24 00:00: 00 [facility] Procedures Procedure Date / Time Performed Performing Clinicia n Source EXCISION OF LEFT ELBOW BURSA AND LIGAMENT, OPEN AP 2025-02-05 00:00:00 BARRI.[email or web address] [facility] Encounters Start Date/Time End Date/Time Encounter Type Admission Type Attending Clinicians Care Facility Care Department Encounter ID Source 2025-02-13 18:59:00 2025-02-14 01:46:00 Emergency EM Doris Kimble [facility] ER [id number] [facility] 2025-02-04 15:10:00 2025-02-06 16:34:00 Inpatient EM Cece Cortes [facility] MAS [id number] [facility] 2025-01-31 06:00:00 2025-01-31 07:01:00 Emergency EM Harshad Collier [facility] ER [id number] [facility] 2024-11-25 02:09:00 2024-11-25 16:07:00 Inpatient TR Omar [facility]01 [id number] [facility] 2022-03-24 11:16:48 2022-03-24 11:16:48 Outpatient [facility] [id number] Drake Mcknight Results Test Description Test Time Test Comments Results Result Co mments Source DRUG OF ABUSE SCREEN [id number] 22:23:00* Test Item Value Reference Range Interpretation Comments UR COCAINE (test code = COCAU) NEGATIVE NEGATIVE UR MDMA (test code = MDMAQLU) NEGATIVE NEGATIVE UR CANNABINOIDS (test code = CANU) NEGATIVE NEGATIVE UR AMPHETAMINE (test code = AMPHU) NEGATIVE NEGATIVE UR BARBITURATE QUAL (test code = BARBQLU) NEGATIVE NEGATIVE UR BENZODIAZEPINE (test code = BENZU) NEGATIVE NEGATIVE UR OPIATES QUAL (test code = OPIAQLU) NEGATIVE NEGATIVE UR PHENCYCLIDINE (PCP) (test code = PHENCU) NEGATIVE NEGATIVE Urine Drug Abuse Screen provides preliminary results thatmay be confirmed by alternate methods (i.e., GC/MS) [facility]. Results of screen may not be usedin criminal justice, job performance or professionalcredential review, or custody issues. Negative [place] Level ng/ml ----- Cocaine 300 Methamphetamine (Ecstacy) 500 Cannabinoids (THC) 50 Amphetamine 1000 Barbiturates 200 Benzodiazepines 200 Opiates 300 Phencyclidine (PCP) 25 UA RFLX MICROSCOPIC [id number] 21:23:00* Test Item Value Reference Range Interpretation Comme nts UA COLOR (test code = COLU) Light-Yellow YELLOW UA APPEARANCE (test code = APPU) CLEAR CLEAR UA GLUCOSE DIPSTICK (test code = DGLUU) NORMAL mg/dL NEGATIVE UA BILIRUBIN DIPSTICK (test code = BILU) NEGATIVE NEGATIVE UA KETONE DIPSTICK (test code = KETU) NEGATIVE mg/dL NEGATIVE UA SPECIFIC GRAVITY (test code = SGU) 1.023 1.001-1.035 N UA BLOOD DIPSTICK (test code = SIDNEY) NEGATIVE UA PH DIPSTICK (test code = KIRSTY) 6.0 5.5-7.0 N UA PROTEIN DIPSTICK (test code = PROU) NEGATIVE mg/dL NEGATIVE UA UROBILINOGEN DIPSTICK (test code = URO) NORMAL mg/dL NORMAL UA NITRITE DIPSTICK (test code = DASHA) NEGATIVE NEGATIVE UA LEUKOCYTE ESTERASE DIPSTICK (test code = LEUU) 25 NEGATIVE UA COMMENT (test code = COMU) VOLUME 10-12 ML URINE SPECIMEN DESCRIPTION (test code = UASPEC) Clean Catch UA WBC (test code = WBCU) < 10 #/HPF 0-10 UA SQUAMOUS CELLS (test code = SQU) 0 - 20 #/LPF <100 UA CULTURE NEEDED? (test code = UACULT) Criteria not met Indication for culture: RiskForSepsis-no oth srcURINE SOURCE: Clean CatchUA [id number] 21:23:00* Test Item Value Reference Range Interpretation Comme nts UA RBC (test code = RBCU) 0-2 #/HPF NONE SEEN Indication for culture: RiskForSepsis-no oth srcURINE SOURCE: Clean CatchCBC W/AUTO [id number] 20:51:00* Test Item Value Reference Range Interpretation Comme nts WHITE BLOOD CELL (test code = WBC) 19.14 x10 3/uL 4.80-10.80 H Results called t o and read back by ROS QUEVEDO;02/13/25ANA ROSA. RED BLOOD CELL (test code = RBC) 4.35 x10 6/uL 4.7-6.1 L HEMOGLOBIN (test code = HGB) 12.3 G/DL 14.0-17.0 L HEMATOCRIT (test code = HCT) 37.4 % 42-52 L MEAN CELL VOLUME (test code = MCV) 86.0 FL 80-94 N MEAN CELL HGB (test code = MCH) 28.3 PG 27-31 N MEAN CELL HGB CONCENTRATION (test code = MCHC) 32.9 G/DL 33-37 L RED CELL DISTRIBUTION WIDTH (test code = RDW) 12.7 % 11.5-14.5 N PLATELET COUNT (test code = PLT) 432 x10 3/uL 150-450 N MEAN PLATELET VOLUME (test code = MPV) 9.2 FL 7.4-10.4 N NEUTROPHIL % (test code = NT%) 62.2 % 42-86 N IMMATURE GRANULOCYTE % (test code = IG%) 2.5 % 0.0-2.0 H LYMPHOCYTE % (test code = LY%) 20.5 % 24-44 L MONOCYTE % (test code = MO%) 8.5 % 0.0-4.0 H EOSINOPHIL % (test code = EO%) 5.5 % 0.0-2.7 H BASOPHIL % (test code = BA%) 0.8 % 0.0-0.5 H NUCLEATED RBC % (test code = NRBC%) 0.0 % 0.0-0.0 N NEUTROPHIL # (test code = NT#) 11.91 x10 3/uL 1.8-7.7 H IMMATURE GRANULOCYTE # (test code = IG#) 0.47 x10 3/uL 0.00-0.03 H LYMPHOCYTE # (test code = LY#) 3.93 x10 3/uL 1.0-4.8 N MONOCYTE # (test code = MO#) 1.63 x10 3/uL 0.0-0.8 H EOSINOPHIL # (test code = EO#) 1.05 x10 3/uL 0.0-0.5 H BASOPHIL # (test code = BA#) 0.15 x10 3/uL 0.0-0.2 N NUCLEATED RBC # (test code = NRBC#) 0.0 X10 3/uL 0.0-0.2 N MANUAL DIFF REQUIRED (test code = MDIFF) ADD MANUAL DIFF TECH REVIEW WBC [id number] 20:51:00* Test Item Value Reference Range Interpretation Comme nts RBC MORPHOLOGY COMMENT (test code = RBCM) Normal PLATELET ESTIMATE (test code = PLTEST) Norm NORMAL TOTAL CELLS COUNTED (test co de = TCC) 100 #CELLS SEGMENTED NEUTROPHILS (test code = SEG) 62 % 42-86 N LYMPHOCYTE (test code = LYMPH) 20 % 24-44 L MONOCYTE (test code = MON) 9 % 0-4 H EOSINOPHIL (test code = EOS) 6 % 0-2.7 H BASOPHIL (test code = BASO) 1 % 0-0.5 H MYELOCYTE (test code = MYELO) 2 % 0-0 H BAND ABSOLUTE (test code = BAND#) 0.00 x10 3/uL 0.0-0.7 N NEUTROPHIL ABSOLUTE (test co de = NEUTR#) 11.86 x10 3/uL 6.0-26.0 N LYMPH ABSOLUTE (test code = LYMPH#) 3.82 x10 3/uL 2.0-17.0 N ATYPICAL LYMPH ABSOLUTE (regine t code = ALYMPH#) 0.00 x10 3/uL 0.0-0.0 N MONOCYTE ABSOLUTE (test code = MON#) 1.72 x10 3/uL 0.4-3.1 N BASOPHIL ABSOLUTE (test code = BASO#) 0.19 x10 3/uL 0.0-0.2 N EOSINOPHIL ABSOLUTE (test co de = EOS#) 1.14 x10 3/uL 0.0-0.5 H METAMYELO ABSOLUTE (test cod e = META#) 0.00 x10 3/uL 0.0-0.0 N MYELOCYTE ABSOLUTE (test cod e = MYELO#) 0.38 x10 3/uL 0.0-0.0 H PROMYELOCYTE ABSOLUTE (test code = PROM#) 0.00 x10 3/uL 0.0-0.0 N BLASTS ABSOLUTE (test code = BLAST#) 0.00 x10 3/uL 0.0-0.0 N OTHER CELLS ABSOLUTE (test code = OCT#) 0.00 x10 3/uL 0.0-0.0 N VACUOLATED NEUTROPHILS (test code = VN) [facility] COMPREHENSIVE METABOLIC [id number] 20:41:00* Test Item Value Reference Range Interpretation Comme nts SODIUM (test code = NA) 137 mmol/L 136-145 N POTASSIUM (test code = K) 3.9 mmol/L 3.4-5.1 N CHLORIDE (test code = CL) 98 mmol/L 98-107 N CARBON DIOXIDE (test code = CO2) 31.0 mmol/L 20-31 N GLUCOSE (test code = GLU) 86 mg/dL 74-106 N BLOOD UREA NITROGEN (test code = BUN) 13 mg/dL 9-23 N GLOMERULAR FILTRATION RATE (test code = GFR) 108 63-147 N The Glomerular Filtration Rate is a calculated parameterbased on serum Creatinine, patient age and sex. GFR valuesless than 60 mL/min/1.73 square meters are indicative ofChronic Kidney Disease. Values less than 15 mL/min/1.73square meters indicate Kidney failure. The calculation forGFR is based on the CKD-EPI (2020) calculation. This formulais race indifferent and is the recommended formula for GFRby the National Kidney Foundation for Adults.The GFR will not calculate if the sex is unknown or if thepatient's age is <18 years. CREATININE (test code = CREAT) 0.87 mg/dL 0.70-1.3 N TOTAL PROTEIN (test code = PROT) 7.2 g/dL 5.7-8.2 N ALBUMIN (test code = ALB) 3.5 g/dL 3.4-5.0 N GLOBULIN (test code = GLOB) 3.7 G/DL 1.5-3.8 N ALBUMIN/GLOBULIN RATIO (test code = A/G) 0.9 1.1-2.2 L CALCIUM (test code = CA) 8.7 mg/dL 8.3-10.6 N BILIRUBIN TOTAL (test code = BILT) < 0.20 mg/dL 0.20-1.10 L SGOT/AST (test code = AST) 57 U/L < 34 SGPT/ALT (test code = ALT) 83 U/L 10-49 H ALKALINE PHOSPHATASE TOTAL (test code = ALKP) 123 U/L 46-116 H INDEX HEMOLYSIS (test code = HEMINDEX) NEGATIVE Grade See_Comment [Automated [place]] The system which generated this result transmitted reference range: 0 NEG. The reference range was not used to interpret this result as normal/abnormal. INDEX ICTERIC (test code = ICTINDEX) NEGATIVE Grade See_Comment [Automated [place]] The system which generated this result transmitted reference range: 0 NEG. The reference range was not used to interpret this result as normal/abnormal. INDEX LIPEMIA (test code = LIPINDEX) NEGATIVE Grade See_Comment [Automated messa ge] The system which generated this result transmitted reference range: 0 NEG. The reference range was not used to interpret this result as normal/abnormal. PROTHROMBIN [id number] 20:27:00* Test Item Value Reference Range Interpretation Comme nts PROTHROMBIN TIME PATIENT (test code = PTP) 11.1 SECONDS 9.6-12.3 N INTERNATIONAL NORMAL RATIO (test code = INR) 0.97 Recommended INR range (warfarin therapy): 2.0 - 3.0INR (International Normalized Ratio) should beused when interpreting oral anticoaglulant therapy. For atrial fibrillation and treatment orprevention of deep vein thrombosis. Patients with Palmaz-Bhavna stent *: 2.0 - 3.0 Patients with mechanical heart valve *: 2.5 - 3.5 Patients with flex-stent *: 3.0 - 4.0(*) = rotary shear worker helper's suggested range Is patient on anticoagulants? No AnticoagulantsHEPATITIS C RNA BY PCR QT 2025-02-07 18:10:00* Test Item Value Reference Range Interpretation Comme nts HEPATITIS C RNA PCR MARIEL (test code = HCVRNAPCRQT) HCV Not Detected IU/mL See_Comment [Automated message] The system which generated this result transmitted reference range: (). The reference range was not used to interpret this result as normal/abnormal. TEST INFORMATION (test code = HCVRNAPCRQI) Comment See_Comment The quantitative range of this assay is 15 IU/mL to 100million IU/mL.Performed At: [address] [id number] Earle S MD Ph:[phone] [Automated message] The system which generated this result transmitted reference range: (). The reference range was not used to interpret this result as normal/abnormal. CBC W/AUTO [id number] 10:47:00* Test Item Value Reference Range Interpretation Comme nts WHITE BLOOD CELL (test code = WBC) 12.57 x10 3/uL 4.80-10.80 H RED BLOOD CELL (test code = RBC) 3.70 x10 6/uL 4.7-6.1 L HEMOGLOBIN (test code = HGB) 10.4 G/DL 14.0-17.0 L HEMATOCRIT (test code = HCT) 31.4 % 42-52 L MEAN CELL VOLUME (test code = MCV) 84.9 FL 80-94 N MEAN CELL HGB (test code = MCH) 28.1 PG 27-31 N MEAN CELL HGB CONCENTRATION (test code = MCHC) 33.1 G/DL 33-37 N RED CELL DISTRIBUTION WIDTH (test code = RDW) 12.2 % 11.5-14.5 N PLATELET COUNT (test code = PLT) 292 x10 3/uL 150-450 N MEAN PLATELET VOLUME (test code = MPV) 10.3 FL 7.4-10.4 N NEUTROPHIL % (test code = NT%) % 42-86 N IMMATURE GRANULOCYTE % (test code = IG%) % 0.0-2.0 N LYMPHOCYTE % (test code = LY%) % 24-44 N MONOCYTE % (test code = MO%) % 0.0-4.0 H EOSINOPHIL % (test code = EO%) % 0.0-2.7 H BASOPHIL % (test code = BA%) % 0.0-0.5 H NUCLEATED RBC % (test code = NRBC%) % 0.0-0.0 N NEUTROPHIL # (test code = NT#) x10 3/uL 1.8-7.7 N IMMATURE GRANULOCYTE # (test code = IG#) x10 3/uL 0.00-0.03 H LYMPHOCYTE # (test code = LY#) x10 3/uL 1.0-4.8 N MONOCYTE # (test code = MO#) x10 3/uL 0.0-0.8 H EOSINOPHIL # (test code = EO#) x10 3/uL 0.0-0.5 H BASOPHIL # (test code = BA#) x10 3/uL 0.0-0.2 N NUCLEATED RBC # (test code = NRBC#) X10 3/uL 0.0-0.2 N MANUAL DIFF REQUIRED (test code = MDIFF) ADD MANUAL DIFF TECH REVIEW WBC [id number] 10:47:00* Test Item Value Reference Range Interpretation Comme nts RBC MORPHOLOGY COMMENT (test code = RBCM) Normal PLATELET ESTIMATE (test code = PLTEST) Norm NORMAL TOTAL CELLS COUNTED (test co de = TCC) 100 #CELLS SEGMENTED NEUTROPHILS (test code = SEG) 60 % 42-86 N LYMPHOCYTE (test code = LYMPH) 27 % 24-44 N MONOCYTE (test code = MON) 11 % 0-4 H EOSINOPHIL (test code = EOS) 1 % 0-2.7 N BASOPHIL (test code = BASO) 1 % 0-0.5 H BAND ABSOLUTE (test code = BAND#) 0.00 x10 3/uL 0.0-0.7 N NEUTROPHIL ABSOLUTE (test co de = NEUTR#) 7.54 x10 3/uL 6.0-26.0 N LYMPH ABSOLUTE (test code = LYMPH#) 3.39 x10 3/uL 2.0-17.0 N ATYPICAL LYMPH ABSOLUTE (regine t code = ALYMPH#) 0.00 x10 3/uL 0.0-0.0 N MONOCYTE ABSOLUTE (test code = MON#) 1.38 x10 3/uL 0.4-3.1 N BASOPHIL ABSOLUTE (test code = BASO#) 0.12 x10 3/uL 0.0-0.2 N EOSINOPHIL ABSOLUTE (test co de = EOS#) 0.12 x10 3/uL 0.0-0.5 N METAMYELO ABSOLUTE (test cod e = META#) 0.00 x10 3/uL 0.0-0.0 N MYELOCYTE ABSOLUTE (test cod e = MYELO#) 0.00 x10 3/uL 0.0-0.0 N PROMYELOCYTE ABSOLUTE (test code = PROM#) 0.00 x10 3/uL 0.0-0.0 N BLASTS ABSOLUTE (test code = BLAST#) 0.00 x10 3/uL 0.0-0.0 N OTHER CELLS ABSOLUTE (test c ode = OCT#) 0.00 x10 3/uL 0.0-0.0 N PLATELET MORPHOLOGY (test co de = PLTMORPH) Normal Normal ACUTE HEPATITIS [id number] 09:12:00* Test Item Value Reference Range Interpretation Comme nts AB HEPATITIS A IGM (test code = HAVMAB) Negative Negative A negative anti-HAV IgM result suggests no recent orcurrent HAV infection. AG HEPATITIS B SURFACE (test code = HBSAG) Negative Negative AB HEPATITIS B CORE IGM (test code = HBCMAB) Negative Negative AB HEPATITIS C (test code = HCVAB) Non Reactive Non Reactive INTERPRETATION (test code = INTER) Comment See_Comment Not infected wit h HCV unless early or acute infection issuspected (which may be delayed in an immunocompromisedin dividual), or other evidence exists to indicate HCVinfection.[facility] med At: [facility] [id number] [place], [place] [id number] Lucio Lindsay MD Ph:[phone] [Automated message] The system which generated this result transmitted reference range: (). The reference range was not used to interpret this result as normal/abnormal. C REACTIVE [id number] 07:03:00* Test Item Value Reference Range Interpretation Comme nts C REACTIVE PROTEIN (test cod e = CRP) 7.6 mg/dL <0.50 COMPREHENSIVE METABOLIC [id number] 06:56:00* Test Item Value Reference Range Interpretation Comme nts SODIUM (test code = NA) 136 mmol/L 136-145 N POTASSIUM (test code = K) 4.1 mmol/L 3.4-5.1 N CHLORIDE (test code = CL) 101 mmol/L 98-107 N CARBON DIOXIDE (test code = CO2) 27.0 mmol/L 20-31 N GLUCOSE (test code = GLU) 97 mg/dL 74-106 N BLOOD UREA NITROGEN (test code = BUN) 9 mg/dL 9-23 N GLOMERULAR FILTRATION RATE (test code = GFR) 110 63-147 N The Glomerular Filtration Rate is a calculated parameterbased on serum Creatinine, patient age and sex. GFR valuesless than 60 mL/min/1.73 square meters are indicative ofChronic Kidney Disease. Values less than 15 mL/min/1.73square meters indicate Kidney failure. The calculation forGFR is based on the CKD-EPI (202) calculation. This formulais race indifferent and is the recommended formula for GFRby the National Kidney Foundation for Adults.The GFR will not calculate if the sex is unknown or if thepatient's age is <18 years. CREATININE (test code = CREAT) 0.84 mg/dL 0.70-1.3 N TOTAL PROTEIN (test code = PROT) 6.0 g/dL 5.7-8.2 N ALBUMIN (test code = ALB) 2.8 g/dL 3.4-5.0 L GLOBULIN (test code = GLOB) 3.2 G/DL 1.5-3.8 N ALBUMIN/GLOBULIN RATIO (test code = A/G) 0.9 1.1-2.2 L CALCIUM (test code = CA) 8.1 mg/dL 8.3-10.6 L BILIRUBIN TOTAL (test code = BILT) < 0.20 mg/dL 0.20-1.10 L SGOT/AST (test code = AST) 24 U/L < 34 SGPT/ALT (test code = ALT) 21 U/L 10-49 N ALKALINE PHOSPHATASE TOTAL (test code = ALKP) 92 U/L 46-116 N INDEX HEMOLYSIS (test code = HEMINDEX) 1+ Grade See_Comment [Automated messa ge] The system which generated this result transmitted reference range: 0 NEG. The reference range was not used to interpret this result as normal/abnormal. INDEX ICTERIC (test code = ICTINDEX) NEGATIVE Grade See_Comment [Automated messa ge] The system which generated this result transmitted reference range: 0 NEG. The reference range was not used to interpret this result as normal/abnormal. INDEX LIPEMIA (test code = LIPINDEX) NEGATIVE Grade See_Comment [Automated messa ge] The system which generated this result transmitted reference range: 0 NEG. The reference range was not used to interpret this result as normal/abnormal. [id number] 06:56:00* Test Item Value Reference Range Interpretation Comme nts MAGNESIUM (test code = MAG) 1.7 mg/dL 1.6-2.6 N HIV 1 2 COMBO AG/AB [id number] 05:10:00* Test Item Value Reference Range Interpretation Comme nts HIV 1 2 COMBO AG/AB SCREEN (test code = [id number]) Non Reactive Non Reactive HIV-1/HIV-2 anti bodies and HIV-1 p24 antigen were NOTdetected. There is no laboratory evidence of HIV infection.HIV NegativePerformed At: [facility] [id number] [place], [place] [id number] Lucio Lindsay MD Ph:[phone] HIV 4th Generation Detects HIV-specific antibodies and HIV-p24 antigen. COMPREHENSIVE METABOLIC [id number] 03:40:00* Test Item Value Reference Range Interpretation Comme nts SODIUM (test code = NA) 136 mmol/L 136-145 N POTASSIUM (test code = K) 4.0 mmol/L 3.4-5.1 N CHLORIDE (test code = CL) 103 mmol/L 98-107 N CARBON DIOXIDE (test code = CO2) 27.0 mmol/L 20-31 N GLUCOSE (test code = GLU) 94 mg/dL 74-106 N BLOOD UREA NITROGEN (test code = BUN) 12 mg/dL 9-23 N GLOMERULAR FILTRATION RATE (test code = GFR) 113 63-147 N The Glomerular Filtration Rate is a calculated parameterbased on serum Creatinine, patient age and sex. GFR valuesless than 60 mL/min/1.73 square meters are indicative ofChronic Kidney Disease. Values less than 15 mL/min/1.73square meters indicate Kidney failure. The calculation forGFR is based on the CKD-EPI (2020) calculation. This formulais race indifferent and is the recommended formula for GFRby the National Kidney Foundation for Adults.The GFR will not calculate if the sex is unknown or if thepatient's age is <18 years. CREATININE (test code = CREAT) 0.77 mg/dL 0.70-1.3 N TOTAL PROTEIN (test code = PROT) 6.4 g/dL 5.7-8.2 N ALBUMIN (test code = ALB) 2.8 g/dL 3.4-5.0 L GLOBULIN (test code = GLOB) 3.6 G/DL 1.5-3.8 N ALBUMIN/GLOBULIN RATIO (test code = A/G) 0.8 1.1-2.2 L CALCIUM (test code = CA) 8.2 mg/dL 8.3-10.6 L BILIRUBIN TOTAL (test code = BILT) < 0.20 mg/dL 0.20-1.10 L SGOT/AST (test code = AST) 20 U/L < 34 SGPT/ALT (test code = ALT) 21 U/L 10-49 N ALKALINE PHOSPHATASE TOTAL (test code = ALKP) 90 U/L 46-116 N INDEX HEMOLYSIS (test code = HEMINDEX) NEGATIVE Grade See_Comment [Automated [employer]] The system which generated this result transmitted reference range: 0 NEG. The reference range was not used to interpret this result as normal/abnormal. INDEX ICTERIC (test code = ICTINDEX) NEGATIVE Grade See_Comment [Automated [employer]] The system which generated this result transmitted reference range: 0 NEG. The reference range was not used to interpret this result as normal/abnormal. INDEX LIPEMIA (test code = LIPINDEX) NEGATIVE Grade See_Comment [Automated Impulcitya ge] The system which generated this result transmitted reference range: 0 NEG. The reference range was not used to interpret this result as normal/abnormal. LIPID PROFILE (CORONARY RISK)2025-02-05 03:40:00* Test Item Value Reference Range Interpretation Comme nts TRIGLYCERIDES (test code = TRIG) 88 mg/dL 0-149 N CHOLESTEROL (test code = CHOL) 130 mg/dL 25-199 N CHOLESTEROL/HDL RATIO (test code = CHOLHDL) 4.1 1.5-4.5 N 1. Initial classification based on total cholesterol: <200 mg/dl Desirable cholesterol 200-239 mg/dl Borderline high risk cholesterol >240 mg/dl High risk cholesterol2. Initial classification based on LDL cholesterol: <130 mg/dl Desirable LDL cholesterol 130-159 mg/dl Borderline high risk LDL >159 mg/dl High risk LDL cholesterol3. HDL < 35 mg/dl represent increased CHD risk; HDL > 60 mg/dl represent decreased CHD risk.4. Chol/HDL > 5.0 represent increased CHD risk in men; Chol/HDL > 4.5 represent increased CHD risk in women. HDL CHOLESTEROL (test code = HDL) 32.0 mg/dL 40-59 L LIPOPROTEIN LDL (test code = LDL) 80 mg/dL 62-130 N LIPOPROTEIN VLDL (test code = VLDL) 18 MG/DL 3-60 N [id number] 03:40:00* Test Item Value Reference Range Interpretation Comme nts MAGNESIUM (test code = MAG) 1.9 mg/dL 1.6-2.6 N CBC W/AUTO [id number] 03:09:00* Test Item Value Reference Range Interpretation Comme nts WHITE BLOOD CELL (test code = WBC) 11.66 x10 3/uL 4.80-10.80 H RED BLOOD CELL (test code = RBC) 4.25 x10 6/uL 4.7-6.1 L HEMOGLOBIN (test code = HGB) 12.1 G/DL 14.0-17.0 L HEMATOCRIT (test code = HCT) 36.5 % 42-52 L MEAN CELL VOLUME (test code = MCV) 85.9 FL 80-94 N MEAN CELL HGB (test code = MCH) 28.5 PG 27-31 N MEAN CELL HGB CONCENTRATION (test code = MCHC) 33.2 G/DL 33-37 N RED CELL DISTRIBUTION WIDTH (test code = RDW) 12.5 % 11.5-14.5 N PLATELET COUNT (test code = PLT) 344 x10 3/uL 150-450 N MEAN PLATELET VOLUME (test code = MPV) 9.7 FL 7.4-10.4 N NEUTROPHIL % (test code = NT%) 53.7 % 42-86 N IMMATURE GRANULOCYTE % (test code = IG%) 0.3 % 0.0-2.0 N LYMPHOCYTE % (test code = LY%) 29.0 % 24-44 N MONOCYTE % (test code = MO%) 11.7 % 0.0-4.0 H EOSINOPHIL % (test code = EO%) 4.6 % 0.0-2.7 H BASOPHIL % (test code = BA%) 0.7 % 0.0-0.5 H NUCLEATED RBC % (test code = NRBC%) 0.0 % 0.0-0.0 N NEUTROPHIL # (test code = NT#) 6.26 x10 3/uL 1.8-7.7 N IMMATURE GRANULOCYTE # (test code = IG#) 0.04 x10 3/uL 0.00-0.03 H LYMPHOCYTE # (test code = LY#) 3.38 x10 3/uL 1.0-4.8 N MONOCYTE # (test code = MO#) 1.36 x10 3/uL 0.0-0.8 H EOSINOPHIL # (test code = EO#) 0.54 x10 3/uL 0.0-0.5 H BASOPHIL # (test code = BA#) 0.08 x10 3/uL 0.0-0.2 N NUCLEATED RBC # (test code = NRBC#) 0.0 X10 3/uL 0.0-0.2 N UA RFLX [id number] 01:49:00* Test Item Value Reference Range Interpretation Comme nts UA COLOR (test code = COLU) Light-Yellow YELLOW UA APPEARANCE (test code = APPU) CLEAR CLEAR UA GLUCOSE DIPSTICK (test code = DGLUU) NORMAL mg/dL NEGATIVE UA BILIRUBIN DIPSTICK (test code = BILU) NEGATIVE NEGATIVE UA KETONE DIPSTICK (test cod e = KETU) NEGATIVE mg/dL NEGATIVE UA SPECIFIC GRAVITY (test code = SGU) 1.024 1.001-1.035 N UA BLOOD DIPSTICK (test code = SIDNEY) TRACE UA PH DIPSTICK (test code = KIRSTY) 5.5 5.5-7.0 N UA PROTEIN DIPSTICK (test code = PROU) NEGATIVE mg/dL NEGATIVE UA UROBILINOGEN DIPSTICK (test code = URO) NORMAL mg/dL NORMAL UA NITRITE DIPSTICK (test code = DASHA) NEGATIVE NEGATIVE UA LEUKOCYTE ESTERASE DIPSTICK (test code = LEUU) NEGATIVE NEGATIVE UA COMMENT (test code = COMU) VOLUME 10-12 ML URINE SPECIMEN DESCRIPTION (test code = UASPEC) Clean Catch URINE SOURCE: Clean CatchUA [id number] 01:49:00* Test Item Value Reference Range Interpretation Comme nts UA WBC (test code = WBCU) < 10 #/HPF 0-10 UA RBC (test code = RBCU) 3-5 #/HPF NONE SEEN A UA SQUAMOUS CELLS (test code = SQU) 0 - 20 #/LPF <100 UA CULTURE NEEDED? (test code = UACULT) Criteria not met UA MUCUS (test code = MUCU) RARE #/lpf NONE SEEN URINE SOURCE: Clean CatchUR SODIUM [id number] 00:45:00* Test Item Value Reference Range Interpretation Comme nts UR SODIUM RANDOM (test code = LING) 114 MMOL/L No established reference range for random urine specimen. UR POTASSIUM [id number] 00:45:00* Test Item Value Reference Range Interpretation Comme nts UR POTASSIUM RANDOM (test code = KU) 63 MMOL/L No established reference range for random urine specimen. UR CHLORIDE [id number] 00:45:00* Test Item Value Reference Range Interpretation Comme nts UR CHLORIDE RANDOM (test code = CLU) 147 MMOL/L No established reference range for random urine specimen. UR PROTEIN [id number] 00:45:00* Test Item Value Reference Range Interpretation Comme nts UR PROTEIN RANDOM (test code = PROTU) 19.5 mg/dL 1-14 H UR CREATININE [id number] 00:45:00* Test Item Value Reference Range Interpretation Comme nts UR CREATININE RANDOM (test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 Coeff of Hira (11.5 - 14.5 %) 12.2 Plt Count (150 - 450 x10 3/uL) 292 MPV (7.4 - 10.4 FL) 10.3 Add Manual Diff (TECH REVIEW) ADD MANUAL DIFF Free Text Obj Notes Free Text Obj Notes: General appearance: alert, awake, oriented, no acute distress Upper extremity left: LUE long-arm soft dressings and elbow postop dressing CDI. Compartments soft, no pain with passive stretch. Performs active finger flexion, extension, abduction, thumbs up and IP flexion. No loss of sensation to the axillary, median, radial, and ulnar nerve distributions. Fingers warm < 2sec cap refill, palpable distal pulses. Diagnosis, Assessment Plan Free text A P: 44M RHD c pmhx tob DOI: 01/29/2025 CLEMENCIA: GLF ORTHOPAEDIC INJURIES: 1. Left infected olecranon bursitis Operative procedures performed Dr. Eckert 02/05/2025: 1. Left irrigation and debridement olecranon bursa FINDINGS: Gross purulence about the olecranon bursa PLAN POD #1: PT wound care to begin packing changes left olecranon bursa and instruct for home -Left olecranon bursa aspiration culture 01/31/2025 grew MSSA. He has been on outpatient Bactrim. Received 1 dose 2 g Ancef and 1 g vancomycin yesterday in ER. Currently on Rocephin. Surgical cultures 02/05/2025 in process. ID following -Activity as tolerated left elbow -ICE left elbow to help minimize pain and swelling -IS 10X per hour Q1hr while awake -Pain management multimodal and Medical management per primary team -Soft tissue vitamin supplements zinc and vitamin C -VTE prophylaxis: SCDs. -Discharge planning per primary team pending medical/surgical outcomes and treatment course -Continue present management - No further acute orthopedic intervention. Will sign off. Please reconsult if needed. The plan of care has been discussed in detail with the patient and family. The patient and family expressed understanding of, agreed with, and are pleased with the current treatment plan. ORTHO DISCHARGE INSTRUCTIONS: -Follow-up in our clinic in 7-10 days. Call our clinic as soon as possible at [phone] to set up an appointment date and time. No xrays are needed -Weight bearing/Activity: Activity as tolerated to the left elbow. -Dressings: Change the left elbow packing every other day as instructed -Call clinic for any questions, problems or concerns. Report to E.R. for severe pain not relieved by pain meds, fever, redness, significant swelling, or if at any time you believe you are experiencing a medical emergency -Continue antibiotics as prescribed -[facility] is located within the [facility] Building (next to hospital), at:[address], [address] [place] [address]. at 0841 RPT #:[id number] END OF REPORT FORMERLY [facility] 2025-02-06 07:50:00 [facility] Infectious Dis. Progress Note REPORT#:[id number] REPORT STATUS: Signed REPORT INITIALIZATION DATE:02/06/25 TIME: 749 PATIENT: TERRIE BARTLETT UNIT #: [id number] ROOM[address]BED: [address] : [address] AGE: 44 SEX: M ATTEND: Cece Cortes MD ADM AUTHOR: Oliva Lucas PROFESSOR OF [employer] REPT SERVICE DT/TIME: 02/06/25 075 * ALL edits or amendments must be made on the electronic/computer document * Olvia Lucas 02/06/25 0750: Subjective Chief complaint: Left elbow swelling HPI: Date of admission: 02/04/2025 Date of consult: 02/05/2025 44-year-old female with history of active tobacco abuse who reported that he slipped and fell several weeks ago. At the time of trauma he had an abrasion over his left elbow. But over the next several days he noted that his left elbow swelled up quickly and became red for which patient presented at [facility] on . Arthrocentesis was performed in ER and a sample was sent for culture. Patient was discharged home on oral Bactrim. Patient reported that while taking Bactrim his elbow continued to become more swollen and more painful and had a significantly limited range of motion. He though continued to take Bactrim as prescribed. Patient was then evaluated by orthopedics who gave him instructions not to take antibiotics and consulted IR to drain the left elbow again. Patient was sent to [facility] as a direct transfer to floors where he was evaluated by resident casino worker for admission. Patient reported that his left upper extremity pain was 7 on a scale of 10 and described it as constant and throbbing pain which was not radiating. It was not alleviated by any factors and remained dull in character. He also reported that his right shoulder was sore and had limited range of motion after a fall 2 days ago in which he landed on his shoulder trying to protect his left shoulder. He denied fever, chest pain or shortness of breath. Patient was placed on vancomycin and cefazolin empirically. Infectious disease consultation was requested to assist in management Review of Systems Free Text ROS Notes Free Text ROS Notes: 10 Point ROS is negative else as mentioned above Objective General VS/I O: Vital Signs Date Temp Pulse Resp B/P B/P Mean Pulse Ox FiO2 02/05-02/06 36.8-37.4 61-84 14-20 95-156/55-82 92.1-106.7 94-100 100 Last Documented: Result Date Time Pulse Ox 95 02/06 0346 B/P 156/82 02/06 0346 B/P Mean 106.7 02/06 0346 Temp 36.8 02/06 0346 Pulse 84 02/06 0346 Resp 17 02/06 0346 O2 Delivery Nasal cannula 02/06 2000 O2 Flow Rate 2 02/06 2000 FiO2 100 02/05 0903 Vital Signs: Date Time Temp Pulse Resp B/P B/P Pulse O2 O2 Flow FiO2 Mean Ox Delivery Rate 02/06 0346 36.8 84 17 156/82 106.7 95 02/05 2312 37.4 77 120/79 92.5 97 02/05 2000 Nasal 2 cannula 02/05 1938 37.0 77 18 132/72 92.1 98 02/05 1251 Nasal 2 cannula 02/05 0935 61 14 103/67 100 Nasal 3 cannula 02/05 0930 64 15 104/72 98 Nasal 2 cannula 02/05 0925 66 15 99/69 94 Nasal 3 cannula 02/05 0920 64 20 116/71 100 Simple 6 mask 02/05 0915 63 16 112/73 100 Simple 6 mask 02/05 0910 62 16 106/66 100 Simple 6 mask 02/05 0905 100/59 02/05 0903 Simple 6 100 mask 02/05 0900 37.2 68 97/56 100 02/05 0859 65 14 95/55 100 Simple 6 mask PATIENT WEIGHT: Weight (lb): Weight (oz): Weight (kg): 86.364 Medications: Active Meds + DC'd Last 24 Hrs Ascorbic Acid (Vitamin C 500 mg Tablet) 500 MG DAILY PO Zinc Sulfate (Zinc Sulfate) 220 MG DAILY PO (CKD) Ketorolac Tromethamine (Toradol 30 mg/1 mL Inj) 15 MG ONCE PRN IV Ketorolac Tromethamine (Toradol 30 mg/1 mL Inj) 15 MG ONCE ONE INJ (DC) Acetaminophen (Tylenol 325 mg Tablet) 650 MG PACU ONCE PO (DC) Albuterol Sulfate (Proventil 2.5 mg/3 mL Nebulizer Ampule) 3 ML ASDIR PRN NEB (DC) Ceftriaxone Sodium (cefTRIAXone) 2,000 MG DAILY IV Sodium Chloride (Normal Saline 10 mL Vial) 20 ML Ephedrine Sulfate (ePHEDrine sulfate 50 mg/1 mL Inj) 5 MG ANES Q5M PRN PRN IV (DC) Fentanyl Citrate (Sublimaze 100 mcg/2 mL Inj) 25 MCG ANES Q5M PRN PRN IV (DC) Fentanyl Citrate (Sublimaze 100 mcg/2 mL Inj) 50 MCG ANES Q5M PRN PRN IV (DC) Hydralazine HCl (Apresoline 20 mg/1 mL Inj) 5 MG Q10M PRN PRN IV (DC) Hydromorphone HCl (Dilaudid 0.5 mg/0.5 mL Inj) 0.5 MG ANES Q5M PRN PRN IV (DC) Labetalol HCl (Trandate 20 mg/4 mL Inj) 5 MG ANES Q5M PRN PRN IV (DC) Lactated Ringer's (Lactated Ringers 1000 mL) 1,000 ML .[id number] IV (DC) Meperidine HCl (Demerol 50 mg/1 mL Inj) 12.5 MG ANES ASDIR PRN IV (DC) Midazolam HCl (Versed 2 mg/2 mL Inj) 1 MG ANES Q5M PRN PRN IV (DC) Naloxone HCl (Narcan 0.4 mg/1 mL Inj) 0.4 MG ASDIR PRN IV (DC) Ondansetron HCl (Zofran 4 mg/2 mL Inj) 4 MG ANES ASDIR PRN IV (DC) Promethazine HCl (Phenergan 25 mg/1 mL Inj) 12.5 MG ASDIR PRN IV (DC) Sodium Chloride (Sodium Chloride 0.9% 50 mL) 50 ML Vancomycin HCl (Vancocin 1,000 mg Inj) 0 .STK-MED ONE .ROUTE (DCr) Dexmedetomidine HCl (Precedex 200 mcg/2 mL Inj) 0 .STK-MED ONE IV (DC) Lactated Ringer's (Lactated Ringers 1000 mL) 1,000 ML .Q10H IV (DC) Lidocaine (Lidocaine 4% Patch) 1 PATCH DAILY TRANSDERM Nicotine (Nicoderm 21 mg Patch) 21 MG DAILY TRANSDERM (CKD) Gabapentin (Neurontin 100 mg Capsule) 100 MG TID PO Morphine Sulfate (morphine 2 mg/1 mL Inj) 2 MG Q4H PRN PRN IV Acetaminophen (Tylenol 325 mg Tablet) 650 MG Q4H PRN PRN PO Hydrocodone Bitart/Acetaminophen (Homestead 7.5/325 mg Tablet) 1 TAB Q4H PRN PRN PO Labetalol HCl (Trandate 20 mg/4 mL Inj) 10 MG Q6H PRN PRN IV Melatonin (Melatonin 5 mg Tablet) 10 MG BEDTIME PRN PO Ondansetron HCl (Zofran 4 mg/2 mL Inj) 4 MG Q8H PRN PRN IV Physical Exam General appearance: alert, awake, oriented, no acute distress Wound/incision: Location: LUE Site condition: dressing clean dry, dressing intact Cardiovascular: normal heart sounds Respiratory: aerating well, symmetric expansion, no distress Abdomen: non-tender, soft Genitourinary: no urinary catheter Extremities: moves all Neuro/[employer]: alert, oriented X 3 Skin: no rash Results Findings/Data: Laboratory Tests 02/06 02/06 0411 0417 Chemistry Sodium (136 - 145 mmol/L) 136 Potassium (3.4 - 5.1 mmol/L) 4.1 Chloride (98 - 107 mmol/L) 101 Carbon Dioxide (20 - 31 mmol/L) 27.0 BUN (9 - 23 mg/dL) 9 Creatinine (0.70 - 1.3 mg/dL) 0.84 Estimated GFR (MDRD) (63 - 147) 110 Glucose (74 - 106 mg/dL) 97 Calcium (8.3 - 10.6 mg/dL) 8.1 L Magnesium (1.6 - 2.6 mg/dL) 1.7 Total Bilirubin (0.20 - 1.10 mg/dL) < 0.20 L AST (< 34 U/L) 24 ALT (10 - 49 U/L) 21 Alkaline Phosphatase (46 - 116 U/L) 92 C-Reactive Prot, Quant (<0.50 mg/dL) 7.6 Total Protein (5.7 - 8.2 g/dL) 6.0 Albumin (3.4 - 5.0 g/dL) 2.8 L Globulin (1.5 - 3.8 G/DL) 3.2 Albumin/Globulin Ratio (1.1 - 2.2) 0.9 L Specimen Appearance (0 NEG Grade) NEGATIVE Specimen Hemolysis (0 NEG Grade) 1+ Laboratory Tests 02/06 0417 Hematology WBC (4.80 - 10.80 x10 3/uL) 12.57 H RBC (4.7 - 6.1 x10 6/uL) 3.70 L Hgb (14.0 - 17.0 G/DL) 10.4 L Hct (42 - 52 %) 31.4 L MCV (80 - 94 FL) 84.9 MCH (27 - 31 PG) 28.1 MCHC (33 - 37 G/DL) 33.1 RDW Coeff of Hira (11.5 - 14.5 %) 12.2 Plt Count (150 - 450 x10 3/uL) 292 MPV (7.4 - 10.4 FL) 10.3 Add Manual Diff (TECH REVIEW) ADD MANUAL DIFF Diagnosis, Assessment Plan Free Text A P: Plan = Await intraoperative report and culture = Ceftriaxone 2 g IV every 24 hours = Blood culture 02/04/2025 negative for 24 hours = Tdap if not up-to-date = On discharge would use Keflex, EOT 02/12/2025 or 02/15/2025, depending on clinical response Assessment 1. Gradual worsening of left elbow pain and swelling x 1 week + right shoulder pain x2 days.. On admission == Left olecranon bursitis+ LUE cellulitis = 01/29/2025: Status post fall, left elbow injury on the concrete = 01/31/2025: [place] ED visit, status post left olecranon bursa aspiration, DC on p.o. Bactrim Left elbow wound: Gram stain: Rare WBC, no organisms. Culture: MSSA from broth only, resistant clindamycin/erythromycin = 02/04/2025: X-ray left elbow: No acute bony abnormality. Small left elbow joint effusion with soft tissue swelling = 02/05/2025: Left irrigation and debridement olecranon bursa. Intraoperative details:Attention was then turned to the posterior aspect of the left elbow where incision was made in a vertical fashion gross purulence was noted. A rongeur was utilized for removal of the bursa that was necrotic. Findings: Gross purulence about the olecranon bursa left elbow wound: Gram stain: No organisms seen. 2+WBCs, No epithelial cells. Culture: Staph aureus left elbow wound: Gram stain: No organisms seen. 3+ WBCs, No epithelial cells. Culture: Presumptive Staph aureus left elbow wound: Gram stain: 2+WBCs, No organisms seen. No epithelial cells. Culture: Presumptive Staph aureus = 02/05/2025: MRSA screen: = 02/05/2025: CRP: 7.6 == Right shoulder pain = 02/02/2025: Status post fall = 02/05/2025: Right shoulder x-ray: No evidence of acute bony abnormality involving the right shoulder == Anemia, defer to IM == Lactic acidosis, 2.14/resolved 2. Active tobacco abuse/[id number] history = 02/04/2025: Chest x-ray: No acute cardiopulmonary disease 3. History of heavy ETOH abuse x 10 years, quit 2015 4. History of Cocaine and THC, 20 years ago 02/05/2025: 44-year-old male with history of active tobacco abuse who sustained a fall on 01/29/2025 with subsequent development of left olecranon bursitis with surrounding cellulitis. Initially treated with oral Bactrim but continued to have worsening pain and swelling to the site. Aspiration of olecranon bursa revealed MSSA. Evaluated by orthopedics and currently awaiting I D/possible bursectomy Subjective 02/06/25 patient seen and examined. resting comfortably. reports pain to left upper extremity much better. rates 4/10 at time of examination. greg wrap clean, dry, intact. denies nausea, vomiting, or diarrhea. Afebrile. WBC 12.57. Purnima Cook MD, FACP Infectious Diseases Thank you for involving us in care of your patient. Please call with any questions Purnima Cook 02/07/25 0743: Attestations Physician Attestation Agree w/findings plan: I have indepenendently evaluated the patient and reviewed the documentation by Abdirahman Lucas NP. I concur with the assesment and plan, unless otherwise specified in my addendum at 1530 at 0744 RPT #:[id number] END OF REPORT FORMERLY [facility] 2025-02-05 13:23:00 [facility] Hospitalist Progress Note REPORT#:[id number] REPORT STATUS: Signed REPORT INITIALIZATION DATE:02/05/25 TIME: 132 PATIENT: TERRIE BARTLETT UNIT #: [id number] ROOM/BED: [place] [address] : 79 AGE: 44 SEX: M ATTEND: Cece Cortes MD ADM AUTHOR: Pauly Molina APRNNP REPT SERVICE DT/TIME: 02/05/25 1323 * ALL edits or amendments must be made on the electronic/computer document * Pauly Molina 02/05/25 1323: Subjective HPI: MR. Terrie Bartlett is a 44 y/o M with PMHx of: Current tobacco smoker (15 pack/ years) who presented to [facility] ED 02/04/2025 with a CC of LUE septic arthritis. Patient reports that he slipped and fell several weeks ago and received an abrasion on his left elbow. Left elbow quickly swelled up over the next several days and became red and patient presented for evaluation at [facility] 01/31/2025. Patient was looked over in the emergency department and arthrocentesis was performed. A sample was sent for culture and patient was sent home on p.o. Bactrim. Patient reports taking p.o. Bactrim as prescribed but the left elbow slowly becoming more swollen, more painful, with a significant limited range of motion. Patient re-presents this evening after first presenting to an outlying ED that noted he needed a higher level of care and consulted Dr. Eckert of orthopedics. Dr. Eckert gave instructions to not administer antibiotics, consult IR for IR guided drainage in the a.m., and give the patient supportive care until definitive treatment could be provided. Patient was then sent to [facility] as a direct transfer to floors where he was evaluated by the resident casino worker for admission. On examination patient reports that his LUE is 7/10 constant throbbing pain that is nonradiating, not alleviated by any factors, and dull in character. Patient also reports his right shoulder is sore and has a limited ROM after a fall 2 days ago in which he landed on the shoulder trying to protect his left elbow. He reports that the shoulder has not been worked up by any physician prior. Despite this, he explicitly denies fever, sweating, chest pain, SOB, palpitations, abdominal pain, dysuria, N/V/D, or any other complaints. Review of Systems Constitutional: Denies: chills, fever. Skin: Reports: other (wound, surgical pain). Respiratory: Denies: GANNON (dyspnea on exertion), hemoptysis, non productive cough, parox nocturnal dyspnea, pleurisy, pleuritic pain, pneumonia, productive cough (sputum ), SOB, wheezing. Cardiovascular: Denies: chest pain, GANNON (dyspnea on exertion), edema, orthopnea, palpitations, parox nocturnal dyspnea. All systems rev neg: except as noted Objective General VS/I O: Vital Signs: Date Time Temp Pulse Resp B/P B/P Pulse O2 O2 Flow FiO2 Mean Ox Delivery Rate 02/05 1251 Nasal 2 cannula 02/05 0935 61 14 103/67 100 Nasal 3 cannula 02/05 0930 64 15 104/72 98 Nasal 2 cannula 02/05 0925 66 15 99/69 94 Nasal 3 cannula 02/05 0920 64 20 116/71 100 Simple 6 mask 02/05 0915 63 16 112/73 100 Simple 6 mask 02/05 0910 62 16 106/66 100 Simple 6 mask 02/05 0905 100/59 02/05 0903 Simple 6 100 mask 02/05 0900 99.0 68 97/56 100 02/05 0859 65 14 95/55 100 Simple 6 mask 02/05 0338 98.1 70 15 134/80 98.3 97 02/04 2345 98.8 84 15 143/79 100.3 95 02/04 1940 98.8 71 15 110/69 82.5 98 02/04 1718 70 16 142/87 98 Room air 02/04 1600 139/87 02/04 1530 131/83 02/04 1530 74 16 98 Room air 02/04 1415 97 02/04 1408 97.9 75 129/77 94.2 98 02/04 1408 97.9 75 129/77 94.2 98 02/04 1401 Room air 24 hour I O ending at 0700: 02/05 0700 02/04 1900 Intake Total Output Total Balance Patient 86.364 kg Weight Weight Stated/Reported Measurement Method PATIENT WEIGHT: Weight (lb): Weight (oz): Weight (kg): 86.364 Medications: Active Meds + DC'd Last 24 Hrs Ascorbic Acid (Vitamin C 500 mg Tablet) 500 MG DAILY PO Zinc Sulfate (Zinc Sulfate) 220 MG DAILY PO (CKD) Ketorolac Tromethamine (Toradol 30 mg/1 mL Inj) 15 MG ONCE ONE INJ (DC) Acetaminophen (Tylenol 325 mg Tablet) 650 MG PACU ONCE PO (DC) Albuterol Sulfate (Proventil 2.5 mg/3 mL Nebulizer Ampule) 3 ML ASDIR PRN NEB (DC) Ceftriaxone Sodium (cefTRIAXone) 2,000 MG DAILY IV Sodium Chloride (Normal Saline 10 mL Vial) 20 ML Gabapentin (Neurontin 100 mg Capsule) 100 MG TID PO Morphine Sulfate (morphine 2 mg/1 mL Inj) 2 MG Q4H PRN PRN IV Acetaminophen (Tylenol 325 mg Tablet) 650 MG Q4H PRN PRN PO Hydrocodone Bitart/Acetaminophen ([place] 7.5/325 mg Tablet) 1 TAB Q4H PRN PRN PO Labetalol HCl (Trandate 20 mg/4 mL Inj) 10 MG Q6H PRN PRN IV Melatonin (Melatonin 5 mg Tablet) 10 MG BEDTIME PRN PO Ondansetron HCl (Zofran 4 mg/2 mL Inj) 4 MG Q8H PRN PRN IV Morphine Sulfate (morphine 4 mg/1 mL Inj) 4 MG X1ED STA IV (DC) Ondansetron HCl (Zofran 4 mg/2 mL Inj) 4 MG X1ED STA IV (DC) Vancomycin HCl (Vancocin 1,000 mg Inj) 2,000 MG X1ED STA IV (DC) Sodium Chloride (Normal Saline 500 mL IV Solution) 500 ML Cefazolin Sodium (Ancef 1 Gm Inj) 0 .STK-MED ONE IV (DCr) Cefazolin Sodium (Ancef 1 Gm Inj) 2 GM X1ED STA IV (DC) Sodium Chloride (Normal Saline 10 mL Vial) 20 ML Sodium Chloride (Sodium Chloride 0.9% 1,000 mL) 1,000 ML X1ED STA IV (DC ) Physical Exam General appearance: alert, awake, oriented, no acute distress, conversational, mental status normal, no respiratory distress Head/Eyes: atraumatic, clear cornea, EOMI ENT: moist mucosal membranes, normal dentition Neck: full range of motion, non-tender Cardiovascular: normal capillary refill, normal heart sounds Respiratory: aerating well, clear to auscultation, symmetric expansion, no distress Abdomen: non-tender, normal bowel sounds, soft, no distention Extremities: moves all, normal capillary refill Musculoskeletal: normal inspection, painless range of motion Neuro/[employer]: alert, oriented X 3, CNII-XII intact, no motor deficits, no sensory deficits Skin: dry, intact Wound/incision: Location: left elbow Site Condition: incision intact, packing present Psychiatry: normal affect, normal judgment/insight Results Findings/Data: Laboratory Tests 02/055 3 2053 1724 1438 Chemistry Sodium (136 - 145 mmol/L) 136 Potassium (3.4 - 5.1 mmol/L) 4.0 Chloride (98 - 107 mmol/L) 103 Carbon Dioxide (20 - 31 mmol/L) 27.0 BUN (9 - 23 mg/dL) 12 Creatinine (0.70 - 1.3 mg/dL) 0.77 Estimated GFR (MDRD) (63 - 147) 113 Glucose (74 - 106 mg/dL) 94 Hemoglobin A1c (0.0 - 5.6 %) 5.50 POC Lactic Acid (0.90 - 1.70 MMOL/L) 1.70 Calcium (8.3 - 10.6 mg/dL) 8.2 L Phosphorus (2.4 - 5.1 mg/dL) 3.6 Magnesium (1.6 - 2.6 mg/dL) 1.9 1.8 Total Bilirubin (0.20 - 1.10 mg/dL) < 0.20 L AST (< 34 U/L) 20 ALT (10 - 49 U/L) 21 Alkaline Phosphatase (46 - 116 U/L) 90 Creatine Kinase (46 - 171 U/L) 69 CK-MB (CK-2) (0.18 - 5.00 ng/mL) 0.94 Rapid Troponin I (0.00 - 0.08 NG/ML) 0.00 Total Protein (5.7 - 8.2 g/dL) 6.4 Albumin (3.4 - 5.0 g/dL) 2.8 L Globulin (1.5 - 3.8 G/DL) 3.6 Albumin/Globulin Ratio (1.1 - 2.2) 0.8 L Triglycerides (0 - 149 mg/dL) 88 Cholesterol (25 - 199 mg/dL) 130 LDL Cholesterol (62 - 130 mg/dL) 80 VLDL Cholesterol (3 - 60 MG/DL) 18 HDL Cholesterol (40 - 59 mg/dL) 32.0 L Cholesterol/HDL Ratio (1.5 - 4.5) 4.1 TSH (0.550 - 4.780 uIU/mL) 1.539 Free T4 (0.89 - 1.76 ng/dL) 0.90 Specimen Appearance (0 NEG Grade) NEGATIVE Specimen Hemolysis (0 NEG Grade) NEGATIVE 02/04 02/04 1430 1425 Chemistry Sodium (133 - 145 MMOL/L) 144 Potassium (3.6 - 5.2 MMOL/L) 4.6 Chloride (100 - 108 MMOL/L) 103 Carbon Dioxide (22 - 32 MMOL/L) 29 BUN (6 - 20 MG/DL) 15 Creatinine (0.60 - 1.00 MG/DL) 1.00 Estimated GFR (MDRD) (63 - 147) 95 Glucose (65 - 99 MG/DL) 101 H POC Lactic Acid (0.90 - 1.70 MMOL/L) 2.14 H Calcium (8.7 - 10.5 MG/DL) 9.5 Total Bilirubin (0.0 - 1.0 MG/DL) 0.4 AST (15 - 37 Units/L) 28 ALT (30 - 65 Units/L) 26 L Alkaline Phosphatase (50 - 136 Units/L) 106 Total Protein (6.4 - 8.2 G/DL) 7.7 Albumin (3.4 - 5.0 G/DL) 3.2 L Laboratory Tests 02/04 2053 Coagulation PT (9.6 - 12.3 SECONDS) 11.3 INR 0.99 APTT (22.5 - 35.3 SECONDS) 25.0 Laboratory Tests 02/05 02/04 0225 1426 Hematology WBC (4.80 - 10.80 x10 3/uL) 11.66 H 11.50 H RBC (4.7 - 6.1 x10 6/uL) 4.25 L 4.82 Hgb (14.0 - 17.0 G/DL) 12.1 L 13.5 L Hct (42 - 52 %) 36.5 L 42.2 MCV (80 - 94 FL) 85.9 87.6 MCH (27 - 31 PG) 28.5 28.0 MCHC (33 - 37 G/DL) 33.2 32.0 L RDW Coeff of Hira (11.5 - 14.5 %) 12.5 12.3 Plt Count (150 - 450 x10 3/uL) 344 373 MPV (7.4 - 10.4 FL) 9.7 8.9 Neut % (Auto) (42 - 86 %) 53.7 68.6 Lymph % (Auto) (24 - 44 %) 29.0 19.6 L Pepin % (Auto) (0.0 - 4.0 %) 11.7 H Mixed Cells % (Auto) (%) 11.8 Eos % (Auto) (0.0 - 2.7 %) 4.6 H Baso % (Auto) (0.0 - 0.5 %) 0.7 H Mixed Cells # (k/mm3) 1.4 Eos # (Auto) (0.0 - 0.5 x10 3/uL) 0.54 H Baso # (Auto) (0.0 - 0.2 x10 3/uL) 0.08 Abs Immat Gran (auto) (0.00 - 0.03 x10 3/uL) 0.04 H Absolute Neuts (auto) (1.8 - 7.7 x10 3/uL) 6.26 7.80 H Absolute Lymphs (auto) (1.0 - 4.8 x10 3/uL) 3.38 2.30 Absolute Monos (auto) (0.0 - 0.8 x10 3/uL) 1.36 H Absolute Nucleated RBC (0.0 - 0.2 X10 3/uL) 0.0 Immature Gran % (0.0 - 2.0 %) 0.3 Nucleated RBC % (0.0 - 0.0 %) 0.0 Laboratory Tests 02/05 02/05 02/04 0001 0001 1502 Urines Ur Spec Description Clean Catch Urine Color (YELLOW) Light-Yellow DARK YELLOW Urine Appearance (CLEAR) CLEAR CLEAR Urine pH (5.5 - 7.0) 5.5 6.0 Ur Specific [place] (1.001 - 1.035) 1.024 1.015 Urine Protein (NEGATIVE mg/dL) NEGATIVE NEGATIVE Urine Glucose (UA) (NEGATIVE mg/dL) NORMAL NEGATIVE Urine Ketones (NEGATIVE mg/dL) NEGATIVE NEGATIVE Urine Blood (NEGATIVE) TRACE 4+ H Urine Nitrite (NEGATIVE) NEGATIVE NEGATIVE Urine Bilirubin (NEGATIVE) NEGATIVE NEGATIVE Urine Urobilinogen (NORMAL mg/dL) NORMAL NORMAL Ur Leukocyte Esterase (NEGATIVE) NEGATIVE NEGATIVE Urine RBC (NONE SEEN #/HPF) 3-5 Urine WBC (0 - 10 #/HPF) < 10 Ur Squamous Epith Cells (<100 #/LPF) 0 - 20 Urine Mucus (NONE SEEN #/lpf) RARE Urine Culture Screen Criteria not met Ur Random Creatinine (mg/dL) 128.8 U Random Total Protein (1 - 14 mg/dL) 19.5 H Ur Random Sodium (MMOL/L) 114 Ur Random Potassium (MMOL/L) 63 Ur Random Chloride (MMOL/L) 147 Protein/Creatinin Ratio (< 0.2) 0.2 Urine Comment VOLUME 10-12 ML Radiology data: Recent Impressions: RADIOLOGY - XR CHEST 1 V 02/04 1413 Report Impression - Status: SIGNED Entered: 02/04/2025 1436 IMPRESSION: 1. No acute cardiopulmonary process. Electronically signed by: Terell Rasheed MD 02/04/2025 02:33 PM CDT RP Impression By: Aaron Rasheed MD RADIOLOGY - XR ELBOW 3+V LT 02/04 1413 Report Impression - Status: SIGNED Entered: 02/04/2025 1439 IMPRESSION: 1. No acute bony abnormality of the left elbow. 2. Small left elbow joint effusion with soft tissue swelling. Electronically signed by: Terell Rasheed MD 02/04/2025 02:36 PM CDT RP Impression By: Aaron Rasheed MD CAT SCAN - CT UP EXTREM W/O CONT LT 02/040 Report Impression - Status: SIGNED Entered: 02/05/2025 1109 IMPRESSION: 1. Cellulitis with possible developing abscess overlying the olecranon. 2. No CT evidence for deep space extension. Electronically signed by: Loyd Lopez MD 02/05/2025 11:06 AM CDT RP Impression By: [email or web address] - Loyd Lopez MD RADIOLOGY - XR SHOULDER 2+V RT 02/05 2120 Report Impression - Status: SIGNED Entered: 02/05/2025 0605 Impression: 1. No evidence of acute bony abnormality involving the right shoulder. Electronically signed by: Pepper Lyles MD 02/05/2025 06:01 AM CDT RP Impression By: Niko Lyles MD ULTRASOUND - US RETROPERITONEAL COM 02/04 2130 Report Impression - Status: SIGNED Entered: 02/05/2025 0453 IMPRESSION: 1. Symmetric renal size, without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
[2025-02-18] MEDS ORDERED: ONDANSETRON 4 MG/2 ML VIAL ONE (23:01)
[2025-02-18] MEDS ORDERED: METOCLOPRAMIDE 10 MG/2mL INJ ONE (23:01)
[2025-02-18] MEDS ORDERED: KETOROLAC 30 MG/ML INJ ONE (23:01)
[2025-02-18] MEDS ORDERED: NA CHLORIDE 0.9% 1,000 ML ONE (23:02)
[2025-02-18 23:17] LABS: Absolute Lymphocytes (CBC) 3.3 K/uL (0.7-4.9); Hematocrit 38.6 % (39.6-49.0); Hemoglobin 12.8 g/dL (13.6-17.9); MCH 27.9 pg (27.0-35.0); MCHC 33.1 g/dL (32.0-36.0); MCV 84.3 fL (80-100); MPV 8.0 fL (7.6-11.3); Nucleated RBC Absolute Count 0.0 (0-0); Nucleated Red Blood Cells % 0.2 % (0-0); RBC Red Blood Cell Count 4.58 M/uL (4.33-5.43); White Blood Count 11.30 thou/uL (4.3-10.9)
[2025-02-18 23:27] LABS: ALT/SGPT 206.0 U/L (16-61); AST/SGOT 87.0 U/L (15-37); Albumin 3.4 g/dL (3.4-5.0); Albumin/Globulin Ratio 0.9 (1.1-1.8); Alkaline Phosphatase 124.0 U/L (45-117); Anion Gap 9.1 mEq/L (5.0-15.0); BUN Blood Urea Nitrogen 15.0 mg/dL (7-18); Globulin 3.9 g/dL (2.3-3.5); Glucose Level 78.0 mg/dL (74-106); Lipase 54.0 U/L (13-75); Potassium 4.1 mEq/L (3.5-5.1)
[2025-02-19] MEDS ORDERED: NA CHLORIDE 0.9% 1,000 ML ONE (00:56)
[2025-02-19] MEDS ORDERED: FENTANYL CITR 100 MCG/2 ML ONE (00:56)
--- NOTE | 2025-02-19 01:10 | RAD REPORT ---
Clinical Indication: Bed Name: 5. Abdominal pain Comparison: November 17, 2023. TECHNIQUE: Noncontrast helical imaging was performed without oral or IV contrast from diaphragm to th e symphysis pubis regions. Multiplanar reformations are obtained. Coronal and sagittal reformats were performed and provided as separate series. CT Radiation Dose: DLP = 836.7 mGy-cm All CT scans at this location are performed using dose optimization techniques as appropriate to perf orm the study. Radiation dose reduction technique was utilized including one or more of the following: Automated exp osure control, adjustment of the mA and/or kV according to patient size and use of iterative reconstruction technique. FINDINGS: This examination is limited for the evaluation of solid organs and vascular structures due to lack of intravenous contrast. LOWER CHEST: The visualized lung bases are clear. NON-CONTRAST ENHANCED SOLID ORGANS: LIVER: Unremarkable. GALLBLADDER: Unremarkable. INTRAHEPATIC BILE DUCT AND EXTRAHEPATIC BILE DUCT: Unremarkable. PANCREAS: Unremarkable. SPLEEN: Unremarkable. ADRENALS: Unremarkable. KIDNEYS: The renal contours are normal. There is no hydronephrosis. No surrounding fat strandin g is noted. No stones are noted in the right kidney. In the left upper pole there is a 2 mm stone seen on image 21 of series 201. A 2 mm stone is noted in the left mid kidney on image 28. In the left lower pole there are 2 1 mm stones seen on image 32. No stones are noted within the left ureter. STOMACH: Evaluation of the stomach and bowel is limited due to lack of oral contrast. No gross abno rmalities of the stomach are noted. BOWEL: The non-contrast opacified small bowel loops in the abdomen and pelvis appear unremarkable. Th e noncontrast opacified colonic loops in the abdomen and pelvis appear unremarkable. APPENDIX: Not well seen on the exam. PERITONEUM AND RETROPERITONEUM: No ascites or free air. No loculated fluid collection is noted. The a bdominal aorta is normal in caliber. LYMPH NODES: Unremarkable. PELVIS: No pelvic mass or adenopathy. The prostate is unremarkable. BLADDER: The urinary bladder is relatively decompressed. Thickening of the urinary bladder wall may b e due to underdistention. No surrounding inflammatory changes are noted. No stones are noted within the urinary bladder. No stones are noted along the expected course of the urethra. OSSEOUS STRUCTURES: No acute abnormality seen. There is intervertebral disc space narrowing at L2-L3 and L4-L5. There is vacuum phenomena with endplate sclerosing and irregularity. SOFT TISSUES: A right inguinal hernia is noted containing a loop of small bowel. No inflammatory malcolm ges are noted. The hernia with small bowel extends down to the scrotum. IMPRESSION: 1. No acute abnormality is seen on non-contrast abdomen and pelvis CT. 2. Nonobstructing left renal calyceal stones. 3. Right inguinal hernia containing small bowel without evidence of obstruction, strangulation or inc arceration. Electronically signed by: Terell Rasheed MD 02/19/2025 12:57 AM CDT RP Due to temporary technical issues with the PACS/[employer] reporting system, reports are being julienne d by the in-house radiologist without review as a courtesy to ensure prompt reporting the interpreting radiologist is fully responsible for the content of the report. Transcribed Date/Time: 02/19/2025 1:10 AM
[2025-02-19 01:16] LABS: Sqamous Epithelial None Seen /HPF (None Seen); Urine Micro Reflex YN NO BILL MICROSCOPIC
--- NOTE | 2025-02-19 01:22 | ER ---
Nurse's Notes [facility] Name: Shreyas Quezada Age: 44 yrs Sex: Male : 1980 Arrival Date: 02/18/2025 Time: 22:38 Bed 5 Private MD: Diagnosis: Nonreducible right inguinal hernia, intractable right inguinal pain Presentation: 02/18 22:52 Chief complaint: Patient states: I have a right inguinal hernia for a year that is bm8 getting worse and making me nauseated. 22:52 Coronavirus screen: At this time, the client does not indicate any symptoms associated bm8 with coronavirus-19. Ebola Screen: Patient negative for fever greater than or equal to 101.5 degrees Fahrenheit, and additional compatible Ebola Virus Disease symptoms Patient denies exposure to infectious person. Patient denies travel to an Ebola-affected area in the 21 days before illness onset. No symptoms or risks identified at this time. Initial Sepsis Screen: Does the patient meet any 2 criteria? No. Patient's initial sepsis screen is negative. Does the patient have a suspected source of infection? No. Patient's initial sepsis screen is negative. Risk Assessment: Do you want to hurt yourself or someone else? Patient reports no desire to harm self or others. Onset of symptoms was 2023. 22:52 Method Of Arrival: Ambulatory bm8 22:52 Acuity: FADUMO 3 bm8 Triage Assessment: 23:00 General: Appears in no apparent distress. uncomfortable, Behavior is calm, cooperative, bm8 appropriate for age. Pain: Complains of pain in groin, right femoral area, right inguinal area and right iliac crest Pain currently is 7 out of 10 on a pain scale. EENT: No deficits noted. No signs and/or symptoms were reported regarding the EENT system. Neuro: No deficits noted. Level of Consciousness is awake, alert, obeys commands, Oriented to person, place, time, situation, Appropriate for age. Cardiovascular: Denies chest pain, Capillary refill < 3 seconds in bilateral fingers Patient's skin is warm and dry. Respiratory: Airway is patent Respiratory effort is even, unlabored, Respiratory pattern is regular, symmetrical. GI: Reports nausea. : Swelling noted Reports cramping, in right groin area. Derm: No signs and/or symptoms reported regarding the dermatologic system. Musculoskeletal: No signs and/or symptoms reported regarding the musculoskeletal system. Historical: - Allergies: 23:00 Morphine; bm8 - Home Meds: 23:00 None [Active]; bm8 - PMHx: 23:00 None; bm8 - PSHx: 23:00 None; bm8 - Immunization history:: Adult Immunizations up to date. - Infectious Disease History:: Denies. - Social history:: Smoking status: Patient reports the use of cigarette tobacco products, smokes one-half pack cigarettes per day, Patient uses alcohol, Patient/guardian denies using street drugs. - Family history:: not pertinent. Screenin:03 [facility] ED Fall Risk Assessment (Adult) History of falling in the last 3 months, bm8 including since admission No falls in past 3 months (0 pts) Confusion or Disorientation No (0 pts) Intoxicated or Sedated No (0 pts) Impaired Gait No (0 pts) Mobility Assist Device Used No (0 pt) Altered Elimination No (0 pt) Score/Fall Risk Level 0 - 2 = Low Risk Oriented to surroundings, Maintained a safe environment, Educated pt \T\ family on fall prevention, incl call for assistance when getting out of bed, Assessed \T\ reinforced patient's understanding of fall precautions, Hourly rounding (assess needs \T\ fall precautionary measures) done, Used ambulatory aids as needed (educated on \T\ assisted with), Used gait belt as appropriate. Abuse screen: Denies threats or abuse. Nutritional screening: No deficits noted. Tuberculosis screening: No symptoms or risk factors identified. Assessment: 23:03 Reassessment: see triage assessment. 8 02/19 01:31 Reassessment: Patient appears in no apparent distress at this time. Patient and/or bm8 family updated on plan of care and expected duration. Pain level reassessed. Patient is alert, oriented x 3, equal unlabored respirations, skin warm/dry/pink. pt is resting with eyes closed breathing is even unlabored with symmetrical rise and fall of chest. pt does not appear in distress or discomfort at this time. awaiting room assignment for hospitalization Patient states feeling better. 02:32 Reassessment: Patient appears in no apparent distress at this time. Patient and/or bm8 family updated on plan of care and expected duration. Pain level reassessed. Patient is alert, oriented x 3, equal unlabored respirations, skin warm/dry/pink. pt assigned room. Patient denies pain at this time. Vital Signs: 02/18 22:52 BP 142 / 92; Pulse 67; Resp 17; Temp 98.6; Pulse Ox 100% ; Weight 86.18 kg; Height 6 bm8 ft. 1 in. ; Pain 7/10; 02/19 01:20 BP 140 / 81; Pulse 96; Resp 17; Temp 98.6; Pulse Ox 93% ; Pain 0/10; bm8 02:32 BP 135 / 78; Pulse 85; Resp 17; Temp 98.6; Pulse Ox 93% ; Pain 0/10; bm8 02/18 22:52 Body Mass Index 25.07 (86.18 kg, 185.42 cm) 8 02/18 22:52 Pain Scale: Adult bm8 02/19 01:20 Pain Scale: Adult bm8 02:32 Pain Scale: Adult bm8 Lindale Coma Score: 01:20 Eye Response: to voice(3). Motor Response: obeys commands(6). Verbal Response: bm8 oriented(5). Total: 14. 02:32 Eye Response: spontaneous(4). Motor Response: obeys commands(6). Verbal Response: bm8 oriented(5). Total: 15. 05:14 Eye Response: spontaneous(4). Motor Response: obeys commands(6). Verbal Response: sp4 oriented(5). Total: 15. ED Course: 02/18 22:41 Patient arrived in ED. im 22:49 Jerry Foster MD is Attending Physician. sp4 22:57 Omar Chapa, RN is Primary Nurse. bm8 23:00 Triage completed. bm8 23:00 Arm band placed on right wrist. bm8 23:03 Patient has correct armband on for positive identification. Bed in low position. Call [facility] light in reach. Side rails up X 1. Adult w/ patient. Client placed on continuous cardiac and pulse oximetry monitoring. NIBP monitoring applied. Pulse ox on. NIBP on. Door closed. Noise minimized. Warm blanket given. Pillow given. Verbal reassurance given. Head of bed elevated. 23:03 No provider procedures requiring assistance completed. Initial lab(s) drawn, by ED [facility] staff, sent to lab. Inserted saline lock: 20 gauge in right antecubital area, using aseptic technique. Blood collected. Flushed with 10 mL NS. 02/19 00:01 Abdomen In Process Unspecified. EDMS 00:24 IV discontinued, pt 's IV infiltrated during CT imaging. bm8 00:30 Inserted saline lock: 20 gauge in right forearm, using aseptic technique. Flushed with bm8 10 mL NS. 00:30 Patient maintains SpO2 saturation greater than 95% on room air. bm8 01:21 Uziel Lucas MD is Hospitalizing Provider. 4 02:32 Provided Education on: need for admission. bm8 Administered Medications: 02/18 23:05 Drug: metoCLOPramide IVP 10 mg IVP once; over 1 to 2 minutes Route: IVP; Site: right 8 antecubital; 02/19 01:31 Follow up: Response: No adverse reaction 8 02/18 23:06 Drug: Ondansetron IVP 4 mg IVP once; over 2 minutes Route: IVP; Site: right antecubital;8 02/19 01:31 Follow up: Response: No adverse reaction 8 02/18 23:06 Drug: NS 0.9% IV 1000 ml IV at 1 bolus Per protocol; to be given as a bolus over 60 bm8 minutes Route: IV; Rate: 1 bolus; Site: right antecubital; 02/19 01:31 Follow up: Response: No adverse reaction; IV Status: Completed infusion 8 02/18 23:06 Drug: Ketorolac IVP 30 mg IVP once Route: IVP; Site: right antecubital; bm8 02/19 01:31 Follow up: Response: No adverse reaction 8 02/18 23:06 Drug: Droperidol IVP 5 mg IVP once Route: IVP; Site: right antecubital; bm8 02/19 01:31 Follow up: Response: No adverse reaction bm8 01:19 Drug: NS 0.9% IV 1000 ml IV at 125 ml/hr Per protocol; to be given at 125 ml / hour bm8 Route: IV; Rate: 125 ml/hr; Site: right forearm; 02:33 Follow up: Response: No adverse reaction; IV Status: Infusion continued upon admission bm8 Medication: 02/18 23:03 VIS not applicable for this client. bm8 Outcome: 02/19 01:22 Decision to Hospitalize by Provider. sp4 02:32 Admitted to Med/surg accompanied by tech, via wheelchair, room 211, with chart, bm8 02:32 Condition: stable 02:32 Instructed on follow up and referral plans. the need for admit, Demonstrated understanding of instructions, follow-up care, medications, 03:00 Patient left the ED. kd3 Signatures: Dispatcher [employer] EDAna Fernandez RN RN kd3 Jerry Foster MD MD sp4 Christi Osborn Brad, RN RN bm8 Corrections: (The following items were deleted from the chart) 02/18 23:00 23:00 PMHx: inguinal hernia; bm8 bm8 23:00 23:00 PSHx: None; bm8 bm8 02/19 01:33 01:20 Reassessment: Patient appears in no apparent distress at this time. Patient bm8 and/or family updated on plan of care and expected duration. Pain level reassessed. Patient is alert, oriented x 3, equal unlabored respirations, skin warm/dry/pink. pt is resting with eyes closed breathing is even unlabored with symmetrical rise and fall of chest. Patient states feeling better. Patient states symptoms have improved. bm8
--- NOTE | 2025-02-19 01:22 | EDPHYS ---
Physician Documentation [facility] Name: Shreyas Quezada Age: 44 yrs Sex: Male : 1980 Arrival Date: 02/18/2025 Time: 22:38 Bed 5 Private MD: ED Physician Jerry Foster HPI: 02/18 22:49 This 44 yrs old Other Race Male presents to ER via Unassigned with complaints of sp4 Nausea, hernia pain, Groin Pain. 22:57 acute right inguinal hernia pain and discomfort. sp4 02/19 05:14 44-year-old male presents with moderate to severe worsening right groin pain associated sp4 with right inguinal hernia. Patient states in the last 24 hours he felt a tearing pain in the right groin and increasing in the amount of right scrotal bulge.. Historical: - Allergies: 02/18 23:00 Morphine; bm8 - Home Meds: 23:00 None [Active]; bm8 - PMHx: 23:00 None; bm8 - PSHx: 23:00 None; bm8 - Immunization history:: Adult Immunizations up to date. - Infectious Disease History:: Denies. - Social history:: Smoking status: Patient reports the use of cigarette tobacco products, smokes one-half pack cigarettes per day, Patient uses alcohol, Patient/guardian denies using street drugs. - Family history:: not pertinent. ROS: 02/19 05:14 Constitutional: Negative for fever, chills, and weight loss, positive for right groin sp4 pain in the right scrotal bulge All other systems are negative, Exam: 05:14 Constitutional: This is a well developed, well nourished patient who is awake, alert, sp4 and in no acute distress. Head/Face: Normocephalic, atraumatic. Eyes: Pupils equal round and reactive to light, extra-ocular motions intact. Lids and lashes normal. Conjunctiva and sclera are not injected. Cornea within normal limits. Periorbital areas with no swelling, redness, or edema. ENT: Nares patent. No nasal discharge, no septal abnormalities noted. Tympanic membranes are normal and external auditory canals are clear. Oropharynx with no redness, swelling, or masses, exudates, or evidence of obstruction, uvula midline. Mucous membranes moist. Neck: Trachea midline, no thyromegaly or masses palpated, and no cervical lymphadenopathy. Supple, full range of motion without nuchal rigidity, or vertebral point tenderness. Chest/axilla: Normal chest wall appearance and motion. Nontender with no deformity. No lesions are appreciated. Cardiovascular: Regular rate and rhythm with a normal S1 and S2. No gallops, murmurs, or rubs. No pulse deficits. Respiratory: Lungs have equal breath sounds bilaterally, clear to auscultation and percussion. No rales, rhonchi or wheezes noted. No increased work of breathing, no retractions or nasal flaring. Abdomen/GI: Soft, with normal bowel sounds. No distension or tympany. No guarding or rebound. No evidence of tenderness throughout. Back: No spinal tenderness. No costovertebral tenderness. Male : There is a moderate size right inguinal hernia that cannot be reduced on exam. Otherwise normal external genitalia, Skin: Warm, dry with normal turgor. Normal color with no rashes, no lesions, and no evidence of cellulitis. MS/ Extremity: Pulses equal, no cyanosis. Neurovascular intact. Full, normal range of motion. Neuro: Awake and alert, GCS 15, oriented to person, place, time, and situation. Cranial nerves II-XII grossly intact. Motor strength 5/5 in all extremities. Sensory grossly intact. Psych: Awake, alert, with orientation to person, place and time. Behavior, mood, and affect are within normal limits Vital Signs: 02/18 22:52 BP 142 / 92; Pulse 67; Resp 17; Temp 98.6; Pulse Ox 100% ; Weight 86.18 kg; Height 6 bm8 ft. 1 in. ; Pain 7/10; 02/19 01:20 BP 140 / 81; Pulse 96; Resp 17; Temp 98.6; Pulse Ox 93% ; Pain 0/10; bm8 02:32 BP 135 / 78; Pulse 85; Resp 17; Temp 98.6; Pulse Ox 93% ; Pain 0/10; bm8 02/18 22:52 Body Mass Index 25.07 (86.18 kg, 185.42 cm) [facility] 02/18 22:52 Pain Scale: Adult bm8 02/19 01:20 Pain Scale: Adult bm8 02:32 Pain Scale: Adult bm8 Jolly Coma Score: 01:20 Eye Response: to voice(3). Motor Response: obeys commands(6). Verbal Response: bm8 oriented(5). Total: 14. 02:32 Eye Response: spontaneous(4). Motor Response: obeys commands(6). Verbal Response: bm8 oriented(5). Total: 15. 05:14 Eye Response: spontaneous(4). Motor Response: obeys commands(6). Verbal Response: sp4 oriented(5). Total: 15. MDM: 02/18 22:50 Medical Screening Exam initiated sp4 02/19 01:16 ED course: Patient was discussed with Dr. Velasco . ED course: CT report - No sp4 surrounding inflammatory changes are noted. No stones are noted within the urinary bladder. No stones are noted along the expected course of the urethra. OSSEOUS STRUCTURES: No acute abnormality seen. There is intervertebral disc space narrowing at L2-L3 and L4-L5. There is vacuum phenomena with endplate sclerosing and irregularity. SOFT TISSUES: A right inguinal hernia is noted containing a loop of small bowel. No inflammatory changes are noted. The hernia with small bowel extends down to the scrotum. IMPRESSION: 1. No acute abnormality is seen on non-contrast abdomen and pelvis CT. 2. Nonobstructing left renal calyceal stones. 3. Right inguinal hernia containing small bowel without evidence of obstruction, strangulation or incarceration. . 05:17 Differential diagnosis: Nonspecific abd pain, pancreatitis, appendicitis, sp4 diverticulitis, viral gastroenteritis, gastroenteritis. Data reviewed: vital signs, nurses notes, old medical records, lab test result(s), CBC, electrolytes, hepatic panel, radiologic studies. Consideration of Admission/Observation Escalation of care including admission/observation considered. ED course: Patient admitted for evaluation by general surgery.. 02/18 22:50 Order name: CBC with Diff; Complete Time: 00:42 sp4 02/18 22:50 Order name: CMP; Complete Time: 00:42 sp4 02/18 22:50 Order name: Lipase; Complete Time: 00:42 sp4 02/18 22:57 Order name: UA W/ Microscopic; Complete Time: 02:56 sp4 02/19 00:42 Order name: Alcohol Level; Complete Time: 02:56 sp4 02/19 02:10 Order name: CBC with Automated Diff EDOK 02/19 02:10 Order name: CBC with Automated Diff EDMS 02/19 02:10 Order name: CBC with Automated Diff EDMS 02/19 02:10 Order name: CBC with Automated Diff EDMS 02/19 02:10 Order name: Comprehensive Metabolic Panel EDMS 02/19 02:10 Order name: Comprehensive Metabolic Panel EDMS 02/19 02:10 Order name: Comprehensive Metabolic Panel EDMS 02/19 02:10 Order name: Comprehensive Metabolic Panel EDMS 02/19 02:10 Order name: Magnesium EDMS 02/19 02:10 Order name: Magnesium EDMS 02/19 02:10 Order name: Magnesium EDMS 02/19 02:10 Order name: Magnesium EDMS 02/19 00:01 Order name: Abdomen EDMS 02/18 22:50 Order name: IV Saline Lock; Complete Time: 23:06 sp4 02/18 22:50 Order name: Labs collected and sent; Complete Time: 23:06 sp4 Administered Medications: 02/18 23:05 Drug: metoCLOPramide IVP 10 mg IVP once; over 1 to 2 minutes Route: IVP; Site: right [facility] antecubital; 02/19 01:31 Follow up: Response: No adverse reaction [facility] 02/18 23:06 Drug: Ondansetron IVP 4 mg IVP once; over 2 minutes Route: IVP; Site: right antecubital;[facility] 02/19 01:31 Follow up: Response: No adverse reaction [facility] 02/18 23:06 Drug: NS 0.9% IV 1000 ml IV at 1 bolus Per protocol; to be given as a bolus over 60 bm8 minutes Route: IV; Rate: 1 bolus; Site: right antecubital; 02/19 01:31 Follow up: Response: No adverse reaction; IV Status: Completed infusion [facility] 02/18 23:06 Drug: Ketorolac IVP 30 mg IVP once Route: IVP; Site: right antecubital; [facility] 02/19 01:31 Follow up: Response: No adverse reaction [facility] 02/18 23:06 Drug: Droperidol IVP 5 mg IVP once Route: IVP; Site: right antecubital; [facility] 02/19 01:31 Follow up: Response: No adverse reaction [facility] 01:19 Drug: NS 0.9% IV 1000 ml IV at 125 ml/hr Per protocol; to be given at 125 ml / hour bm8 Route: IV; Rate: 125 ml/hr; Site: right forearm; 02:33 Follow up: Response: No adverse reaction; IV Status: Infusion continued upon admission bm8 Disposition: 05:18 Chart complete. sp4 Disposition Summary: 02/19/25 01:22 Hospitalization Ordered Notes: Hospitalization Status: Observation sp4 Provider: Uziel Lucas sp4 Location: Telemetry/MedSurg (observation) sp4 Condition: Stable sp4 Problem: new sp4 Symptoms: have improved sp4 Bed/Room Type: Standard sp4 Room Assignment: 211(02/19/25 02:03) rv1 Diagnosis - Nonreducible right inguinal hernia, intractable right inguinal pain sp4 Forms: - Medication Reconciliation Form sp4 - SBAR form sp4 - Leadership Thank You Letter sp4 Signatures: Dispatcher [employer] [facility] Holley Montilla rv1 Jerry Foster MD MD sp4 Omar Chapa RN RN bm8 Corrections: (The following items were deleted from the chart) 02/18 23:00 23:00 PMHx: inguinal hernia; [place] [id number] 23:00 23:00 PSHx: None; [place] [id number] 02/19 00:01 02/18 22:57 Abdomen Pelvis W Con+CT.RAD.BRZ ordered. [facility] 02/19 02:03 01:22 sp4 rv1
[2025-02-19] MEDS ORDERED: ONDANSETRON 4 MG/2 ML VIAL IV PRN (02:02)
--- NOTE | 2025-02-19 02:02 | P.HP ---
Certification for Inpatient Patient admitted to: Inpatient With expected LOS: >2 Midnights Patient will require the following post-hospital care: None Practitioner: I am a practitioner with admitting privileges, knowledge of patient current condition, hospital course, and medical plan of care. Services: Services provided to patient in accordance with Admission requirements found in Title 42 Section 412.3 of the Code of Federal Regulations Patient History Date of Service: 02/19/25 Reason for admission: Acute right inguinal hernia History of Present Illness: Patient is a 44-year-old male with past medical history of right inguinal hernia, nicotine dependence, smokes 1 and half pack of cigarettes a day, who presents to the ER tonight complaining of severe and worsening pain to his right groin ,associated with nausea and vomiting nonbilious, and nonbloody content. Patient states he started having severe pain to his right groin today, states the pain progressively worsening throughout the day, which then prompted him to report to the ER. States the pain was very excruciating and unbearable with a pain scale of 10/10. Patient describes the pain as aching, throbbing, and consistent. Patient denies of any fever or chills at home. According to report received from , he states he consulted Dr. Velasoc, and states he will see the patient in morning. Course in ER: CT abdomen, Impression: (A) no acute abnormality is seen on noncontrast abdomen and pelvis. (B) nonobstructing left renal calyceal stones. (C) right inguinal hernia containing small bowel without evidence of obstruction, strangulation or incarceration. Allergies No Known Allergies Allergy (Unverified 12/20/17 16:12) - Past Medical/Surgical History Diabetic: No -: right inguinal hernia -: Left elbow. - Social History Smoking Status: Current every day smoker Smoking therapy provided: Yes Patient receptive to therapy: No Alcohol use: Yes CD- Drugs: No Caffeine use: Yes Place of Residence: Home Review of Systems 10-point ROS is otherwise unremarkable General: Other (right inguinal hernia with severe pain) Physical Examination - Physical Exam General: Alert, In no apparent distress, Oriented x3, Cooperative HEENT: Atraumatic, Normocephalic, PERRLA, Mucous membr. moist/pink Neck: 2+ carotid pulse no bruit, No Thyromegaly, Without JVD or thyroid abnormality Respiratory: Clear to auscultation bilaterally, Normal air movement Cardiovascular: No edema, Normal pulses, Regular rate/rhythm, Normal S1 S2, Abnormal S3, No gallops Capillary refill: <2 Seconds Gastrointestinal: Normal bowel sounds, Soft and benign, Non-distended, W/out hepatomegaly, No ascites Musculoskeletal: No clubbing, No swelling, No contractures, No erythema, No tenderness, No warmth Integumentary: No rashes, No breakdown, No significant lesion, No tenderness/swelling, No erythema, No warmth, No cyanosis Neurological: Normal gait, Normal speech, Normal strength at 5/5 x4 extr, Normal tone, Sensation intact, Cranial nerves 3-12 intact, Normal reflexes 2+, Normal affect Lymphatics: No axilla or inguinal lymphadenopathy External genitalia: Other (Severe pain right inguinal hernia) - Studies Laboratory Data (last 24 hrs) 02/18/25 02/18/25 23:00 23:00 WBC 11.30 H Hgb 12.8 L Hct 38.6 L Plt Count 388 Sodium 139 Potassium 4.1 BUN 15 Creatinine 1.12 Glucose 78 Total Bilirubin 0.2 AST 87 H ALT 206 H Alkaline Phosphatase 124 H Lipase 54 Male Exam - Male Exam Inguinal exam: Inguinal hernia (Right inguinal hernia) Assessment and Plan - Plan Patient is a 44-year-old male reports to ER complaining of severe pain to his right groin, patient is diagnosed with acute right inguinal hernia, nonobstructing, no strangulation, or incarceration per CT scan of his abdomen. (1)Acute right inguinal hernia. -Order for n.p.o. at this time until patient is seen by surgery Dr. Velasco in the morning. Kept patient n.p.o. in case he decides to take patient in for surgery. -IV D5 half NS at 100 ml/ hr. -Morphine 4 mg IV as needed every 4 hours. -Zofran 4 mg IV as needed every 6 hours. -Zosyn 3.375 g IV every 8 hours. Patient WBC 11.30. -Consult surgery Dr. Velasco. (2)DVT prophylaxis. -Order for an SCD at this time in case patient might need to go for surgery in the morning. (3)Explained the entire treatment plan to the patient, solicit questions answered and voiced understanding. (4)Nicotine use disorder. Patient has been smoking cigarettes for several years. -Discussed with the patient on nicotine patch use, but he declined at this time. Discharge Plan: Home Plan to discharge in: 72 Hours - Advance Directives Does patient have a Living Will: No Does patient have a Durable POA for Healthcare: No - Code Status/Comfort Care Code Status Assessed: Yes Code Status: Full Code Critical Care: No Time Spent Managing Pts Care (In Minutes): 55
[2025-02-19] MEDS ORDERED: MORPHINE 4 MG/ML SYR IV PRN (02:08)
[2025-02-19 03:19] VITALS: O2SAT 93
[2025-02-19] MEDS: D5 0.45 NS 1,000 ML IV SCH (03:24)
[2025-02-19 04:00] VITALS: BMI 25.7
[2025-02-19] MEDS: PIPER TAZO 3.375 GM in NA CHLORIDE 0.9% 100 ML IV SCH (08:16)
[2025-02-19 08:31] VITALS: BP 113/57; TEMP 97.9
--- NOTE | 2025-02-19 10:32 | P.PN ---
Date of Service: 02/19/25 Patient is a 44-year-old male with a several year history of a right inguinal hernia. He came in when there was pain to the inguinal region as such he was admitted for possible surgical management. However he has noted that there is significant improvement and he is now pain-free and has no pain no tenderness no issues at all and the hernia is reduced to its normal position at the end his description. Physical exam shows an nontender right inguinal region with an inguinal hernia evident in the area. No incarceration no entrapment at this point no obvious evidence of strangulation. -Okay to start diet and advance as tolerated. - I have recommended surgical intervention however patient would like to proceed as an outpatient and as such if patient tolerates diet he will be able to go home and I have given him my instructions and information regarding how to manage this as an outpatient until he is surgical intervention. I have discussed that he should see me this week for surgical planning. - I discussed the symptoms to look for and to return to the ER with any worsening of symptoms whatsoever. Patient displayed understanding above-stated plan all questions were answered and he agrees to proceed as indicated. I will forward to seeing him as an outpatient to plan surgical intervention. -Full consult to follow.
== END 2025-02-19 13:16 | disposition left against medical advice (07) | DRG 395 ==
LOC: ER 22:38 → 2ND 02-19 01:53
PROVIDERS: ADMIT Hospitalist; ATTEND Hospitalist
DX: K40.90 Unilateral inguinal hernia, without obstruction or gangrene, not specified as recurrent (principal); F17.210 Nicotine dependence, cigarettes, uncomplicated; Z88.5 Allergy status to narcotic agent; Z53.29 Procedure and treatment not carried out because of patient's decision for other reasons
CPT/HCPCS: 36415; 74176; 80053; 81001; 82077; 83690; 85025; J1790; J2405; J2543; J2765; J3010; J7030; J7799